=== PATIENT | female | born 1935 | race Caucasian/White ===

== ENCOUNTER → 2019-12-14 15:36 | Outpatient (BNVA) | payer MEDICARE, SELFPAY | PROVIDERS: Family Provider Nurse Practitioner Family; PCP Nurse Practitioner Family; Visit Provider Nurse Practitioner Family | DX: I10 Essential (primary) hypertension (principal); Z51.81 Encounter for therapeutic drug level monitoring | CPT/HCPCS: 80053; 85025 ==

== ENCOUNTER → 2020-06-20 13:45 | Outpatient (BNVA) | payer MEDICARE, SELFPAY | PROVIDERS: Family Provider Nurse Practitioner Family; PCP Nurse Practitioner Family; Visit Provider Nurse Practitioner Family | DX: R30.0 Dysuria (principal); R31.9 Hematuria, unspecified | CPT/HCPCS: 80053; 81000; 87077; 87086; 87186 ==

== ENCOUNTER → 2020-06-27 10:13 | Outpatient (BNVA) | payer MEDICARE, SELFPAY | PROVIDERS: Family Provider Nurse Practitioner Family; PCP Nurse Practitioner Family; Visit Provider Nurse Practitioner Family | DX: N39.0 Urinary tract infection, site not specified (principal) | CPT/HCPCS: 80053 ==

== ENCOUNTER → 2020-12-08 11:11 | Outpatient (BNVA) | payer MEDICARE, SELFPAY | PROVIDERS: Family Provider Nurse Practitioner Family; PCP Nurse Practitioner Family; Visit Provider Nurse Practitioner Family | DX: R39.9 Unspecified symptoms and signs involving the genitourinary system (principal); R31.9 Hematuria, unspecified; Z51.81 Encounter for therapeutic drug level monitoring; Z79.01 Long term (current) use of anticoagulants; N39.0 Urinary tract infection, site not specified | CPT/HCPCS: 80053; 81000; 85025; 87077; 87086; 87184 ==

== ENCOUNTER → 2020-12-22 10:02 | Outpatient (BNVA) | payer MEDICARE, SELFPAY | PROVIDERS: Family Provider Nurse Practitioner Family; PCP Nurse Practitioner Family; Visit Provider Nurse Practitioner Family | DX: R31.9 Hematuria, unspecified (principal) | CPT/HCPCS: 87086 ==

== ENCOUNTER → 2021-09-04 08:48 | Outpatient (BNVA) | payer MEDICARE, SELFPAY | PROVIDERS: Family Provider Nurse Practitioner Family; PCP Nurse Practitioner Family; Visit Provider Nurse Practitioner Family | DX: R30.9 Painful micturition, unspecified (principal); N30.00 Acute cystitis without hematuria | CPT/HCPCS: 81000; 87086 ==

== ENCOUNTER → 2022-05-11 09:11 | Outpatient (BNVA) | payer MEDICARE, SELFPAY | PROVIDERS: Family Provider Nurse Practitioner Family; PCP Nurse Practitioner Family; Visit Provider Internal Medicine | DX: I48.91 Unspecified atrial fibrillation (principal); E78.5 Hyperlipidemia, unspecified; I10 Essential (primary) hypertension; Z79.01 Long term (current) use of anticoagulants | CPT/HCPCS: 99213; 99214 ==

== ENCOUNTER → 2022-07-10 15:53 | Outpatient (BNVA) | payer MEDICARE, SELFPAY | PROVIDERS: Family Provider Nurse Practitioner Family; PCP Nurse Practitioner Family; Visit Provider Nurse Practitioner Family | DX: Z79.01 Long term (current) use of anticoagulants (principal); I10 Essential (primary) hypertension | CPT/HCPCS: 80053; 85025 ==

== ENCOUNTER → 2022-11-07 15:26 | Outpatient (BNVA) | payer MEDICARE, SELFPAY | PROVIDERS: Family Provider Nurse Practitioner Family; PCP Nurse Practitioner Family; Visit Provider Nurse Practitioner Family | DX: R39.9 Unspecified symptoms and signs involving the genitourinary system (principal) | CPT/HCPCS: 81000; 87077; 87086; 87184 ==

== ENCOUNTER → 2023-02-08 09:47 | Outpatient (BNVA) | payer MEDICARE, SELFPAY | PROVIDERS: Family Provider Nurse Practitioner Family; PCP Nurse Practitioner Family; Visit Provider Internal Medicine | DX: I48.91 Unspecified atrial fibrillation (principal); E78.5 Hyperlipidemia, unspecified; I10 Essential (primary) hypertension; Z79.01 Long term (current) use of anticoagulants | CPT/HCPCS: 99214 ==

== ENCOUNTER → 2023-04-09 14:52 | Outpatient (BNVA) | payer MEDICARE, SELFPAY | PROVIDERS: Family Provider Nurse Practitioner Family; PCP Nurse Practitioner Family; Visit Provider Nurse Practitioner Family | DX: N39.0 Urinary tract infection, site not specified (principal) | CPT/HCPCS: 81000; 87077; 87086; 87184 ==

== ENCOUNTER → 2023-04-18 08:59 | Outpatient (BNVA) | payer MEDICARE, SELFPAY | PROVIDERS: Family Provider Nurse Practitioner Family; PCP Nurse Practitioner Family; Visit Provider Nurse Practitioner Family | DX: N39.0 Urinary tract infection, site not specified (principal) | CPT/HCPCS: 87077; 87086; 87184 ==

== ENCOUNTER → 2023-05-01 08:32 | Outpatient (BNVA) | payer MEDICARE, SELFPAY | PROVIDERS: Family Provider Nurse Practitioner Family; PCP Nurse Practitioner Family; Visit Provider Nurse Practitioner Family | DX: N39.0 Urinary tract infection, site not specified (principal) | CPT/HCPCS: 81000; 87086 ==

== ENCOUNTER → 2023-11-28 11:14 | Outpatient (BNVA) | payer MEDICARE, SELFPAY | PROVIDERS: Family Provider Nurse Practitioner Family; PCP Nurse Practitioner Family; Visit Provider Internal Medicine | DX: I48.91 Unspecified atrial fibrillation (principal); Z79.01 Long term (current) use of anticoagulants; E78.5 Hyperlipidemia, unspecified; I10 Essential (primary) hypertension; R06.02 Shortness of breath | CPT/HCPCS: 80048; 83880; 99214 ==

== ENCOUNTER 2023-12-06 13:45 | Outpatient (CLI) | payer MEDICARE, SELFPAY ==
--- NOTE | 2023-12-06 14:00 | USCV_ITS ---
Anna Chávez Age: 88 Gender: F : 1935 Exam Date: 12/06/2023 14:04 Ordering Phys: Antonio Calix M.D ([email or web address]) Technologist: HILDA Exam Location: [facility] [place] Indication: CHEST PAIN/SHORTNESS OF BREATH BP: 118 / 66 HR: 72 Rhythm: Sinus Technical Quality: Adequate MEASUREMENTS (Male / Female) Normal Values 2D ECHO LV Diastolic Diameter PLAX 3.8 cm 4.2 - 5.9 / 3.9 - 5.3 cm IVS Diastolic Thickness 1.0 cm 0.6 - 1.0 / 0.6 - 0.9 cm IVS Systolic Thickness 1.9 cm LVPW Diastolic Thickness 1.7 cm 0.6 - 1.0 / 0.6 - 0.9 cm LVPW Systolic Thickness 1.8 cm LVOT Diameter 2.0 cm LV Ejection Fraction 2D Teich 82.6 % LV Ejection Fraction MOD 2C 61.0 % LV Ejection Fraction 2C AL 62.5 % LA Diameter 4.1 cm RA Systolic Volume 4C AL 20.2 ml RA Systolic Volume 4C MOD 19.3 ml Aorta at Sinotubular Diameter 2.7 cm IVC Diameter 1.6 cm M-MODE LA Ao Ratio MM 1.1 AV Cusp Separation MM 1.4 cm DOPPLER AV Peak Velocity 192.3 cm/s LVOT Peak Velocity 81.0 cm/s AV Area Cont Eq vti 2.2 cm squared AV Area Cont Eq pk 1.4 cm squared MV Peak Velocity 207.7 cm/s MV Area PHT 3.5 cm squared Mitral E to A Ratio 0.0 TR Peak Velocity 198.0 cm/s TR Peak Gradient 15.7 mmHg TR Mean Velocity 169.0 cm/s TR Mean Gradient 11.8 mmHg TR Velocity Time Integral 56.7 cm TV Peak E Velocity 59.0 cm/s Right Atrial Pressure 3.0 mmHg Pulmonary Artery Systolic Pressu 18.7 mmHg PV Peak Velocity 115.0 cm/s RV Ejection Time 0.3 s FINDINGS Left Ventricle Left ventricle is normal in size. LV systolic function is normal with EF of 55-60%. No regional wall motion abnormalities are seen. Right Ventricle Normal in size and function Right Atrium Normal in size Left Atrium Normal in size Mitral Valve Moderate mitral annular calcification. Mild mitral regurgitation. Aortic Valve Structurally normal aortic valve. Mild to moderate aortic regurgitation. Tricuspid Valve Mild tricuspid regurgitation. Pulmonary artery systolic pressure is normal. Pulmonic Valve Mild pulmonic regurgitation. Pericardium Grossly normal Aorta Normal in size IVC Appears to be normal CONCLUSIONS LV systolic function is normal with EF of 55 to 60%. Mild mitral regurgitation Mild to moderate aortic regurgitation Mild tricuspid regurgitation Mild pulmonic regurgitation No comparison studies are available Antonio Calix MD (Electronically Signed) Final Date: 15 December 2023 14:05 S
== END 2023-12-06 13:46 | disposition home or self-care (01) ==
LOC: RAD 13:46
PROVIDERS: Family Provider Nurse Practitioner Family; PCP Nurse Practitioner Family; Visit Provider Internal Medicine
DX: I08.8 Other rheumatic multiple valve diseases (principal)
CPT/HCPCS: 93306

== ENCOUNTER → 2023-12-09 15:18 | Outpatient (BNVA) | payer MEDICARE, SELFPAY | PROVIDERS: Family Provider Nurse Practitioner Family; PCP Nurse Practitioner Family; Visit Provider Nurse Practitioner Family | DX: K92.1 Melena (principal); D64.9 Anemia, unspecified | CPT/HCPCS: 82270; 82607; 83550; 85025 ==

== ENCOUNTER → 2023-12-11 08:40 | Outpatient (BNVA) | payer MEDICARE, SELFPAY | PROVIDERS: Family Provider Nurse Practitioner Family; PCP Nurse Practitioner Family; Visit Provider Nurse Practitioner Family | DX: K92.1 Melena (principal) | CPT/HCPCS: 82272 ==

== ENCOUNTER 2023-12-16 13:06 | Outpatient (CLI) | payer MEDICARE, SELFPAY ==
[2023-12-16 13:52] LABS: Basophils % 0.5 %; Eosinophils # 0.1 10^3/uL (0.0-0.8); Eosinophils % 2.8 %; Hematocrit 29.6 % (36-47); Lymphocytes % 22.5 %; Mean Corpuscular HGB Conc 28.4 g/dL (30-55); Mean Corpuscular Hemoglobin 22.2 pg (27-33); Mean Corpuscular Volume 78.3 fl (85-98); Mean Platelet Volume 10.2 fL (7.4-10.4); Monocytes # 0.4 10^3/uL (0.2-0.9); Neutrophils # 2.86 10^3/uL (1.8-7.7); Neutrophils % 65.7 %; Nucleated Red Blood Cells % 0 %; Platelet Count 303 10^3/cmm (157-399); Red Blood Count 3.78 10^6/uL (3.85-5.65); Red Cell Distribution Width 17.2 % (12.1-15.1); White Blood Count 4.35 10^3/uL (3.29-11.43)
[2023-12-16 14:07] LABS: Anion Gap 14.3 (5-19); Blood Urea Nitrogen 30 mg/dL (8-23); Calcium 8.6 mg/dL (8.5-10.5); Carbon Dioxide 25 mmol/L (22-29); Chloride 102 mmol/L (98-107); Glucose 125 mg/dL (65-115); NT Pro B Type Natriuretic Pept 436 pg/mL (0-450); Osmolality Calculated 292 mOsm/kg (285-295); Potassium 4.3 mmol/L (3.5-5.1); Sodium 137 mmol/L (136-145)
== END 2023-12-16 13:07 | disposition home or self-care (01) ==
LOC: LAB 13:07
PROVIDERS: Family Provider Nurse Practitioner Family; PCP Nurse Practitioner Family; Visit Provider Internal Medicine
DX: I10 Essential (primary) hypertension (principal); I48.91 Unspecified atrial fibrillation; D64.9 Anemia, unspecified
CPT/HCPCS: 36415; 80048; 83880; 85025

== ENCOUNTER → 2024-02-27 11:23 | Outpatient (BNVA) | payer MEDICARE, SELFPAY | PROVIDERS: Family Provider Nurse Practitioner Family; PCP Nurse Practitioner Family; Visit Provider Internal Medicine | DX: I48.91 Unspecified atrial fibrillation (principal); E78.5 Hyperlipidemia, unspecified; I10 Essential (primary) hypertension; Z79.01 Long term (current) use of anticoagulants | CPT/HCPCS: 99214 ==

== ENCOUNTER 2024-03-29 10:09 | Inpatient (IN) | payer MEDICARE, SELFPAY ==
[2024-03-29] VITALS (13 sets, daily range): BP systolic 137–197; BP diastolic 50–91; PULSE 66–79; RESP 16–18; TEMP 36.2–36.6; O2SAT 95–100; BMI 29.1
--- NOTE | 2024-03-29 10:13 | CTR_ITS ---
PROCEDURE INFORMATION: Exam: CT Head Without Contrast Exam date and time: 03/29/2024 10:24 AM Age: 88 years old Clinical indication: Stroke-like symptoms; Altered mental status/memory loss; Additional info: Possible stroke. No focal neurologic signs or symptoms reported. TECHNIQUE: Imaging protocol: Computed tomography of the head without contrast. Radiation optimization: All CT scans at this facility use at least one of these dose optimization techniques: automated exposure control; mA and/or kV adjustment per patient size (includes targeted exams where dose is matched to clinical indication); or iterative reconstruction. Other technique: STROKE PROTOCOL was implemented. COMPARISON: CT head wo con* [id number] 09/04/2018 1:52 AM RADIATION DOSE METRICS: Total DLP (mGy-cm): 1075.18 FINDINGS: Brain: No acute intracranial hemorrhage or abnormal intracranial mass effect is identified. There are no subdural collections. There is mild age-appropriate volume loss. There is a small old left medial occipital infarct, new since 2018 exam but obviously not recent. Small old lacunar infarct noted at the posterolateral margin of the left thalamus. Cerebral ventricles: Size within normal range for age. No midline shift. Paranasal sinuses: Visualized portions of paranasal sinuses are well aerated. Mastoid air cells: Visualized portions of mastoid sinuses are not opacified. Bones: Unremarkable. No acute fracture. Soft tissues: Other than as stated above, no obvious acute abnormality. CT/CT head wo con* [id number] IMPRESSION: No acute intracranial hemorrhage or mass effect. ASSESSMENT: ASPECTS ([place] Stroke Program Early CT Score) is 10.
--- NOTE | 2024-03-29 10:14 | ECG_ITS ---
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 Measurements Intervals [place] Rate: 62 P: 83 GA: 155 QRS: 3 QRSD: 89 T: 36 QT: 410 QTc: 419 Interpretive Statements SINUS RHYTHM WITH OCCASIONAL SUPRAVENTRICULAR PREMATURE COMPLEXES No previous ECG available for comparison Electronically Signed On 03-29-2024 19:19:54 CDT by Antonio Calix M.D. [id number]
--- NOTE | 2024-03-29 10:16 | W.ED.NEUROSD ---
HPI - Neuro Symptoms/Deficit General: Chief Complaint: Neuro Symptoms/Deficit Stated Complaint: HTN Time Seen by Provider: 03/29/24 10:10 History of Present Illness: 88-year-old female who presents emergency room by ambulance with transient left arm weakness. She said she could not control it when she tried to brush her hair. This lasted maybe 30 minutes. EMS reports she was fairly hypertensive well over 200 when they picked her up. On presentation she is 183/78. She currently has no headache. No altered mental status. No facial droop. No slurred speech. On exam here she has no apparent focal motor deficits. The she says her left arm still feels a little bit funny but on exam she really has no drift. No weakness. She denies any chest pain. No nausea or vomiting. No abdominal pain. No dysuria. No fevers Review of Systems Narrative: Constitutional symptoms: Negative except as documented in HPI. Skin symptoms: Negative except as documented in HPI. Eye symptoms: Negative except as documented in HPI. ENMT symptoms: Negative except as documented in HPI. Respiratory symptoms: Negative except as documented in HPI. Cardiovascular symptoms: Negative except as documented in HPI. Gastrointestinal symptoms: Negative except as documented in HPI. Genitourinary symptoms: Negative except as documented in HPI. Musculoskeletal symptoms: Negative except as documented in HPI. Neurologic symptoms: Negative except as documented in HPI. Psychiatric symptoms: Negative except as documented in HPI. Endocrine symptoms: Negative except as documented in HPI. [facility] ED PFSH: Medical History GERD (gastroesophageal reflux disease) Anticoagulation adequate with anticoagulant therapy Atrial fibrillation Dyslipidemia HTN (hypertension) Surgical History S/P bladder repair History of appendectomy Family History Mother CAD (coronary artery disease) Brother CAD (coronary artery disease) Social History Smoking and tobacco/nicotine status: never used tobacco/nicotine Alcohol intake: never Substance/Drug Use: never Adopted: No Caregiver/support person: No Lives independently: Yes service: No Current occupational status: retired Do you think of yourself as: Straight/Heterosexual Current gender identity: Female Physical Exam Narrative: EXAM NARRATIVE: General: Alert, no acute distress. Skin: Warm, dry. Head: Normocephalic, atraumatic. Neck: Supple, trachea midline. Eye: Extraocular movements are intact. Ears, nose, mouth and throat: mucosa moist. Cardiovascular: Regular, Normal peripheral perfusion. Respiratory: Lungs are clear to auscultation, respirations are non-labored, breath sounds are equal, Symmetrical chest wall expansion. Gastrointestinal: Soft, Nontender, Non distended Musculoskeletal: Normal ROM, no deformity. Neurological: Alert and oriented, No focal neurological deficit observed. Psychiatric: Cooperative, appropriate mood & affect. Course Vital Signs: Vital signs: Vital Signs Temperature 97.9 F 03/29/24 10:11 Pulse Rate 71 03/29/24 10:11 Respiratory Rate 18 03/29/24 10:11 Blood Pressure 154/70 03/29/24 13:00 Pulse Oximetry 98 03/29/24 13:00 Oxygen Delivery Me thod Room Air 03/29/24 10:11 MDM - Neuro Symptoms/Deficit Medical Decision Making Medical decision making: Differential diagnosis for patient with focal neurologic deficit(s) includes but not limited to and based on the above HPI, review of systems and physical exam: ischemic stroke, hemorrhagic stroke and embolic stroke secondary to atrial fibrillation), TIA, Us's palsey, metabolic encephalopathy with previous stroke. Orders placed to evaluate differential diagnosis based on the above differential, HPI and physical exam NIH Stroke Scale/Score (NIHSS) from [employer] on 03/29/2024 All calculations should be rechecked by clinician prior to use RESULT SUMMARY: 0 points NIH Stroke Scale INPUTS: 1A: Level of consciousness ?> 0 = Alert; keenly responsive 1B: Ask month and age ?> 0 = Both questions right 1C: 'Blink eyes' & 'squeeze hands' ?> 0 = Performs both tasks 2: Horizontal extraocular movements ?> 0 = Normal 3: Visual guzman ?> 0 = No visual loss 4: Facial palsy ?> 0 = Normal symmetry 5A: Left arm motor drift ?> 0 = No drift for 10 seconds 5B: Right arm motor drift ?> 0 = No drift for 10 seconds 6A: Left leg motor drift ?> 0 = No drift for 5 seconds 6B: Right leg motor drift ?> 0 = No drift for 5 seconds 7: Limb Ataxia ?> 0 = No ataxia 8: Sensation ?> 0 = Normal; no sensory loss 9: Language/aphasia ?> 0 = Normal; no aphasia 10: Dysarthria ?> 0 = Normal 11: Extinction/inattention ?> 0 = No abnormality CT head: No acute intracranial process. no intracranial hemorrhage, no evidence of infarct. no evidence of acute fracture.This was reviewed and interpreted by myself the ER physician. Consultation: I consulted [facility] stroke program and spoke with the physician on-call and he evaluated her by telemedicine. She has an NIH of 1 at best. At high risk for bleeding so at this point they recommend admission and consideration of anticoagulation with Eliquis again. I recommend passive hypertension up to around 200-2 20 systolic. I recommend high-dose statin therapy. If Eliquis not resumed then high-dose aspirin therapy. I recommended MRI and admission. Lab Review: Laboratory results were reviewed and interpreted by myself the emergency room physician. No leukocytosis. Stable anemia. BUN/creatinine are 27 and 1.1 which is near her baseline. Oddly her INR is at 2.36 today and she says she has not been on any anticoagulation for a couple of months now and it was Eliquis before so this is a bit unexpected. Urinalysis is clear. EKG: Time 10:17 AM. Rate 62. PVCs were noted. Normal sinus rhythm, No ST-T changes, normal W[place] & QRS intervals, This was reviewed and interpreted by myself the ER physician at 10:20 AM. Repeat EKG: Time 11:06 AM. Rate 100. Patient either appears to be having more frequent PVCs or has gone into atrial fibrillation. Rate is 100. Normal [place] & QRS intervals, This was reviewed and interpreted by myself the ER physician at 11:10 AM. This EKG does appear changed and she may be going in and out of atrial fibrillation. Repeat EKG: Time 12:05 PM. Rate 65. Normal sinus rhythm, No ST-T changes, no ectopy, normal [place] & QRS intervals, This was reviewed and interpreted by myself the ER physician at 12:08 AM. Patient now appears to be back into a sinus rhythm with no PVCs. Consultation: I spoke with Dr. Dodge about the patient who is admitting the patient to the hospital. I reviewed the patient's medical record. Reexamination: Patient remained stable. No altered mental status. She still says her left arm feels a bit strange. Some mild drift. No increased work of breathing. Assessment and plan: Cerebrovascular accident. Accelerated hypertension. History of recurrent GI bleeding and anemia -325 aspirin given here in the emergency room. Consultation as above and admission. -I discussed the patient with the hospitalist on-call who is admitting the patient. - Discussed findings and plan with patient. Answered any questions. - All laboratory values were reviewed and interpreted personally by myself, the ER physician - All imaging was reviewed and interpreted personally by myself, the ER physician. - Evaluation and treatment of this problem were appropriate in the emergency setting -I spent a total of >35 minutes of critical care time managing the patient, independent of any other practitioner. -The time involved in the performance of separately reportable procedures was not counted towards critical care time. Lab Data 03/29/24 10:44 03/29/24 10:[address] 03/29/24 10:13 IMPRESSION: No acute intracranial hemorrhage or mass effect. ASSESSMENT: ASPECTS ([place] Stroke Program Early CT Score) is 10. Laboratory Results WBC 4.03 10^3/uL (3.29-11.43) 03/29/24 10:44 RBC 3.82 10^6/uL (3.85-5.65) L 03/29/24 10:44 Hgb 10.00 g/dL (11.27-16.99) L 03/29/24 10:44 Hct 33.3 % (36-47) L 03/29/24 10:44 MCV 87.2 fl (85-98) 03/29/24 10:44 MCH 26.2 pg (27-33) L 03/29/24 10:44 MCHC 30.0 g/dL (30-55) 03/29/24 10:44 RDW 17.5 % (12.1-15.1) H 03/29/24 10:44 Plt Count 206 10^3/cmm (157-399) 03/29/24 10:44 MPV 10.0 fL (7.4-10.4) 03/29/24 10:44 Neut % (Auto) 71.1 % 03/29/24 10:44 Lymph % (Auto) 18.4 % 03/29/24 10:44 Bibb % (Auto) 7.4 % 03/29/24 10:44 Eos % (Auto) 2.7 % 03/29/24 10:44 Baso % (Auto) 0.2 % 03/29/24 10:44 Neut # (Auto) 2.86 10^3/uL (1.8-7.7) 03/29/24 10:44 Lymph # (Auto) 0.7 10^3/uL (0.8-4.8) L 03/29/24 10:44 Bibb # (Auto) 0.3 10^3/uL (0.2-0.9) 03/29/24 10:44 Eos # (Auto) 0.1 10^3/uL (0.0-0.8) 03/29/24 10:44 Baso # (Auto) 0.0 10^3/uL (0.0-0.1) 03/29/24 10:44 Nucleated RBC % (auto) 0 % 03/29/24 10:44 Nucleated RBCs # 0.0 /100WBC 03/29/24 10:44 PT 27.00 SECONDS (12.1-14.9) H 03/29/24 10:44 INR 2.39 (0.8-1.2) H 03/29/24 10:44 APTT 33.6 SECONDS (23.9-36.7) 03/29/24 10:44 Sodium 138 mmol/L (136-145) 03/29/24 10:44 Potassium 4.2 mmol/L (3.5-5.1) 03/29/24 10:44 Chloride 104 mmol/L (98-107) 03/29/24 10:44 Carbon Dioxide 24 mmol/L (22-29) 03/29/24 10:44 Anion Gap 14.2 (5-19) 03/29/24 10:44 BUN 27 mg/dL (8-23) H 03/29/24 10:44 Creatinine 1.1 mg/dL (0.5-0.9) H 03/29/24 10:44 GFR Calculation Not Reportable 03/29/24 10:44 Glucose 94 mg/dL (65-115) 03/29/24 10:44 Calculated Osmolality 291 mOsm/kg (285-295) 03/29/24 10:44 Calcium 8.2 mg/dL (8.5-10.5) L 03/29/24 10:44 Total Bilirubin 0.2 mg/dL (0.15-1.2) 03/29/24 10:44 AST 24 U/L (0-32) 03/29/24 10:44 ALT 9 U/L (0-33) 03/29/24 10:44 Alkaline Phosphatase 122 U/L (35-105) H 03/29/24 10:44 Troponin T Baseline 25 ng/L (0-10) H 03/29/24 10:44 Delta Troponin T 0.18 ABS# (0-10) 03/29/24 12:49 C-Reactive Protein 3.0 mg/L (0.0-4.9) 03/29/24 10:44 Total Protein 6.9 g/dL (6.6-8.7) 03/29/24 10:44 Albumin 3.5 g/dL (3.5-5.2) 03/29/24 10:44 Globulin 3.4 g/dL (1.3-4.6) 03/29/24 10:44 Urine Color Yellow (Yellow) 03/29/24 10:55 Urine Appearance Clear (CLEAR) 03/29/24 10:55 Urine pH 5 (5-7) 03/29/24 10:55 Ur Specific [place] 1.015 (1.005-1.030) 03/29/24 10:55 Urine Protein Neg (Negative) 03/29/24 10:55 Urine Glucose (UA) Norm (Normal) 03/29/24 10:55 Urine Ketones Negative (Negative) 03/29/24 10:55 Urine Blood Neg (Negative) 03/29/24 10:55 Urine Nitrate Negative (Negative) 03/29/24 10:55 Urine Bilirubin Neg (Negative) 03/29/24 10:55 Urine Urobilinogen Norm mg/dL (Negative) 03/29/24 10:55 Ur Leukocyte Esterase Negative (Negative) 03/29/24 10:55 Urine RBC None /hpf (0-2) 03/29/24 10:55 Urine WBC 0-4 /hpf (0-5) H 03/29/24 10:55 Ur Squamous Epith Cells 0-4 /hpf (0-5) H 03/29/24 10:55 Amorphous Sediment Not Reportable 03/29/24 10:55 Urine Bacteria Trace /hpf (NONE) 03/29/24 10:55 All radiology interpretation(s) finalized by discharge Discharge Plan Discharge Patient Disposition: Admitted As Inpatient Clinical Impression: Cerebrovascular accident, Atrial fibrillation, Accelerated hypertension Condition: Stable Coding Level of Care Code ED Harvest Worker for Sherin Benjamin
[2024-03-29] MEDS: labetalol 5 mg/mL SDV 20mL 10 MG IVP (10:58)
[2024-03-29] MEDS: aspirin 81 mg Chew Tablet 324 MG PO (10:58)
[2024-03-29 10:59] LABS: Basophils % 0.2 %; Eosinophils # 0.1 10^3/uL (0.0-0.8); Eosinophils % 2.7 %; Hematocrit 33.3 % (36-47); Lymphocytes # 0.7 10^3/uL (0.8-4.8); Lymphocytes % 18.4 %; Mean Corpuscular Hemoglobin 26.2 pg (27-33); Mean Corpuscular Volume 87.2 fl (85-98); Monocytes # 0.3 10^3/uL (0.2-0.9); Monocytes % 7.4 %; Neutrophils # 2.86 10^3/uL (1.8-7.7); Neutrophils % 71.1 %; Nucleated Red Blood Cells % 0 %; Platelet Count 206 10^3/cmm (157-399); Red Blood Count 3.82 10^6/uL (3.85-5.65); Red Cell Distribution Width 17.5 % (12.1-15.1); White Blood Count 4.03 10^3/uL (3.29-11.43)
--- NOTE | 2024-03-29 11:06 | ECG_ITS ---
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 Measurements Intervals [place] Rate: 100 P: 0 CO: 0 QRS: 52 QRSD: 77 T: 30 QT: 316 QTc: 408 Interpretive Statements ATRIAL FIBRILLATION WITH RAPID VENTRICULAR RESPONSE LOW QRS VOLTAGE IN PRECORDIAL LEADS [QRS DEFLECTION < 1.0 mV IN CHEST LEADS] Compared to ECG 03/29/2024 10:17:28 Low QRS voltage now present Sinus rhythm no longer present Electronically Signed On 03-29-2024 19:27:33 CDT by Antonio Calix M.D. [id number]
[2024-03-29 11:09] LABS: Add Urine Culture? No; Bacteria Urine TRACE /hpf; Bilirubin Urine Neg (Negative); Blood Urine Neg (Negative); Glucose Urine UA Norm (Normal); Ketones Urine Negative (Negative); Leukocyte Esterase Urine Negative (Negative); Nitrate Urine Negative (Negative); Protein Urine Neg (Negative); Specific Gravity, Urine 1.015 (1.005-1.030); Squamous Epithelial Cell Urine 0-4 /hpf (0-5); Urine Appearance Clear (CLEAR); Urine Color Yellow (Yellow); Urobilinogen Urine Norm (Negative); WBC Urine 0-4 /hpf (0-5); pH Urine 5 (5-7)
[2024-03-29 11:17] LABS: Alanine Aminotransferase 9 U/L (0-33); Albumin Level 3.5 g/dL (3.5-5.2); Alkaline Phosphatase 122 U/L (35-105); Anion Gap 14.2 (5-19); Aspartate Amino Transferase 24 U/L (0-32); Blood Urea Nitrogen 27 mg/dL (8-23); Calcium 8.2 mg/dL (8.5-10.5); Carbon Dioxide 24 mmol/L (22-29); Chloride 104 mmol/L (98-107); Globulin 3.4 g/dL (1.3-4.6); Glucose 94 mg/dL (65-115); Osmolality Calculated 291 mOsm/kg (285-295); Potassium 4.2 mmol/L (3.5-5.1); Sodium 138 mmol/L (136-145); Total Bilirubin 0.2 mg/dL (0.15-1.2); Total Protein 6.9 g/dL (6.6-8.7)
[2024-03-29 11:19] LABS: Troponin(5th) Baseline 25 ng/L (0-10)
[2024-03-29 11:28] LABS: INR 2.39 (0.8-1.2); Partial Thromboplastin Time 33.6 SECONDS (23.9-36.7)
[2024-03-29 13:20] LABS: Troponin 5 2HR 25.18 ng/L (0-10); Troponin 5 2HR Delta 0.18 ABS# (0-10)
--- NOTE | 2024-03-29 13:20 | USR_ITS ---
PROCEDURE INFORMATION: Exam: US Duplex Bilateral Extracranial Arteries; Complete; Carotid Arteries Exam date and time: 03/29/2024 4:45 PM Age: 88 years old Clinical indication: Other: CVA TECHNIQUE: Imaging protocol: Real-time duplex ultrasound scan of the bilateral extracranial arteries combining chawla scale, color Doppler and spectral waveform analysis with image documentation. Complete exam. Exam focused on the carotid arteries. COMPARISON: CT angio headneck* [id number] 03/29/2024 1:56 PM FINDINGS: Right common carotid artery: Atheroma of the proximal right common carotid artery with moderate stenosis. Right internal carotid artery: Atheromas at its origin with mild stenosis. Right ICA/CCA ratio: Within normal limits. Right external carotid artery: Atheroma at its origin with moderate stenosis. Right vertebral artery: Unremarkable. Antegrade flow. Left common carotid artery: Atheroma at its distal aspect with mild stenosis. Left internal carotid artery: Atheroma at its origin with mild stenosis. Left ICA/CCA ratio: Within normal limits. Left external carotid artery: Atheroma with mild stenosis. Left vertebral artery: Unremarkable. Antegrade flow. US/CV carotid duplex BI* [id number] IMPRESSION: 1. Mild stenosis of bilateral internal carotid arteries. 2. Moderate stenosis of the right proximal common carotid artery. REFERENCES: SRU CRITERIA. The degree of internal carotid artery stenosis is based on criteria defined by the Society of Radiologists in Ultrasound (SRU). Normal is no stenosis. Mild is less than 50% stenosis. Moderate is 50-69% stenosis. Severe is greater than 69% stenosis to near occlusion. Near occlusion is a markedly narrowed lumen. Total occlusion is no detectable patent lumen.
--- NOTE | 2024-03-29 13:20 | MRR_ITS ---
PROCEDURE INFORMATION: Exam: MR Head Without Contrast Exam date and time: 03/29/2024 2:10 PM Age: 88 years old Clinical indication: Altered mental status/memory loss; Age related cognitive decline; Additional info: CVA TECHNIQUE: Imaging protocol: Magnetic resonance imaging of the head without contrast. COMPARISON: CT head wo con* [id number] 03/29/2024 10:24 AM FINDINGS: Brain: Bilateral periventricular white matter and centrum semiovale foci of high FLAIR signal consistent with chronic ischemic small vessel disease. Encephalomalacia of the left medial occipital lobe, from prior infarct. Tiny acute cortical lacunar infarct involving the right precentral gyrus. No intracranial mass. No acute bleed. Cerebral ventricles: Normal. No ventriculomegaly. Bones: Unremarkable. Paranasal sinuses: Normal as visualized. No acute sinusitis. Mastoid air cells: Partial opacification of the right mastoid air cells. Orbital cavities: Post bilateral cataract surgery. Soft tissues: Unremarkable. MR/MR head wo con* [id number] IMPRESSION: Acute cortical lacunar infarct of the right precentral gyrus. No intracranial hemorrhage or intracranial mass.
--- NOTE | 2024-03-29 13:20 | USCV_ITS ---
Anna Chávez Age: 88 Gender: F : 1935 Exam Date: 03/29/2024 17:26 Ordering Phys: Doroteo Dodge MD Technologist: Francois Kenny [place] [facility] [place]: cva BP: 130 / 78 HR: 67 Rhythm: Sinus Technical Quality: Adequate MEASUREMENTS (Male / Female) Normal Values 2D ECHO LV Diastolic Diameter PLAX 4.7 cm 4.2 - 5.9 / 3.9 - 5.3 cm IVS Diastolic Thickness 1.0 cm 0.6 - 1.0 / 0.6 - 0.9 cm IVS Systolic Thickness 1.7 cm LVPW Diastolic Thickness 1.4 cm 0.6 - 1.0 / 0.6 - 0.9 cm LVPW Systolic Thickness 2.1 cm LVOT Diameter 2.0 cm LV Ejection Fraction 2D Teich 75.8 % LV Ejection Fraction MOD 2C 74.8 % LV Ejection Fraction 2C AL 75.2 % LA Diameter 4.3 cm RA Systolic Volume 4C AL 51.4 ml RA Systolic Volume 4C MOD 52.0 ml Aorta at Sinotubular Diameter 2.3 cm IVC Diameter 1.4 cm M-MODE LA Ao Ratio MM 1.4 AV Cusp Separation MM 1.4 cm DOPPLER AV Peak Velocity 231.7 cm/s LVOT Peak Velocity 84.0 cm/s AV Area Cont Eq vti 2.8 cm squared AV Area Cont Eq pk 1.2 cm squared MV Peak Velocity 135.0 cm/s MV Area PHT 2.8 cm squared Mitral E to A Ratio 1.5 TV Peak Velocity 355.5 cm/s TR Peak Velocity 361.0 cm/s TR Peak Gradient 52.1 mmHg TR Mean Velocity 289.0 cm/s TR Mean Gradient 36.3 mmHg TR Velocity Time Integral 103.2 cm PV Peak Velocity 102.3 cm/s RV Ejection Time 0.3 s FINDINGS Left Ventricle Left ventricle is normal in size. LV systolic function is normal with EF of 60 to 65%. No regional wall motion abnormalities are seen Right Ventricle Normal in size and function Right Atrium Normal in size Left Atrium Dilated Mitral Valve Moderate mitral annular calcification seen. Mild mitral regurgitation. Aortic Valve Aortic valve is thickened. No significant stenosis. Mild to moderate aortic regurgitation. Tricuspid Valve Mild tricuspid regurgitation. RVSP is 50 to 55 mmHg. This is consistent with moderate pulmonary hypertension Pulmonic Valve Mild pulmonic regurgitation. Pericardium Normal Aorta Normal in size IVC Appears to be normal CONCLUSIONS LV systolic function is normal with EF of 60-65% Left atrial dilation Mild mitral regurgitation Mild to moderate aortic regurgitation Mild tricuspid regurgitation. Moderate pulmonary hypertension Mild pulmonic regurgitation Compared to prior echocardiogram from 11/2023, no significant changes are seen. Antonio Calix MD (Electronically Signed) Final Date: 30 March 2024 12:00 S
--- NOTE | 2024-03-29 13:20 | ECG_ITS ---
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 Measurements Intervals [place] Rate: 67 P: 87 MS: 163 QRS: -8 QRSD: 86 T: 30 QT: 392 QTc: 416 Interpretive Statements SINUS RHYTHM WITH SINUS ARRHYTHMIA Compared to ECG 03/29/2024 11:06:23 Atrial fibrillation no longer present Electronically Signed On 03-29-2024 19:18:58 CDT by Antonio Calix M.D. [id number]
--- NOTE | 2024-03-29 13:25 | P.HP_ITS ---
Providers/Chief Complaint 2 Primary Care Provider: ASHLEY Negrete Chief Complaint: HTN History of Present Illness Anna Chávez is a 88 year old female with a past medical history of atrial fibrillation, not on anticoagulation due to recent history of GI bleed requiring blood transfusion EGD found to have gastric ulcers in [facility] within the last few months, history of acute on chronic anemia, who presents to [facility] due to left hand clumsiness. Currently patient is alert oriented x 3, following all commands no facial droop no slurring of words, word finding difficulty, no visual deficits no lower extremity weakness, she has some clumsiness of her left hand, although very mild compared to when she came in she tells me, her NIH stroke scale is 1, on my assessment currently, patient tells me that roughly 830 this morning, she woke up, she noticed that she had clumsiness of her left hand, cannot brush her hair, she was able to walk, no unsteadiness on her feet no lightheadedness, no dizziness, no trouble communicating thoughts no facial droop no slurring her words, no other focal weakness, so she tells me that she sat back in her chair, until her daughter called EMS, she came in as a stroke alert, [place] neurology was consulted, they assessed patient, in addition to ER provider, CT head was within normal limits, a stroke scale was 0, patient was not deemed a tPA candidate due to her recent history of GI bleed and low NIH stroke scale, she tells me that her left hand clumsiness has significantly improved, only minimal currently, [id number] is normal, [id number] on the left side is abnormal, she does report that her GI physician in [place] has been monitoring her, per GI bleed, she had an EGD, required cauterization of the stomach ulcer she tells me her hide last hemoglobin was 10, currently it is 10, she is supposed to have a screening EGD in April, does report generalized weakness, no hematemesis, denies any NSAID use, but has been using aspirin for the last week, 81 mg, she is off all blood thinners, in terms of the decision when to and if to resume anticoagulant therapy, she tells me that her GI physician at [place] advised her to have a discussion with her fundraising consultant, she is seeing the fundraising consultant, no decision has been made when and if to resume anticoagulant therapy. With the patient's daughters at bedside I had a detailed discussion with the patient about her goals of care, she is DNR/DNI, in terms of when and if to resume anticoagulant therapy. The decision when to resume anticoagulant therapy is controversial, depends on her symptomatology the size of the stroke, it could be anywhere from 48 hours to 2 weeks, but we could certainly talk to neurology again and see what their opinion is. In terms of anticoagulant and antiplatelet therapy, given that her hemoglobin stable, I gave them 2 reasonable options. We can start her on a heparin drip here after ensuring the CTA head and neck, and MRI do not show any significant bleeding, and we have waited the appropriate time after her acute CVA episode to start anticoagulant therapy although this is very controversial, we can watch her hemoglobin and, watch her here in the hospital, and if she does have any bleeding complications, we can certainly go ahead and proceed to reverse anticoagulant, watch her hemoglobin and transfuse as needed and certainly consider doing an EGD. The other option is, as patient told me the neurologist said, started on aspirin 325 mg, watch her hemoglobin, and have her follow-up with her GI physician in [facility]. Family is asking if we can do the EGD while she is here, electively. Certainly that is a possibility however as she is still in the acute phase of her stroke, complications associate with putting her under any form of anesthesia, even minimal sedation, carries significant risks, morbidity and mortality associated. After discussing the risks and benefits of all options, she voiced understanding, all questions answered, shared decision, patient would prefer aspirin 325 mg. Review of Systems 2 Const: Denies: fever(s) Card: Denies: chest pain Resp: Denies: dyspnea Medications/Allergies Home Medications Medication Instructions Recorded Confirmed Last Taken Type meclizine 25 mg tablet mg PO 12/09/23 02/27/24 Unknown History metoprolol succinate 25 mg See Rx Instructions .Route 01/17/24 02/27/24 Unknown Rx tablet,extended release 24 hr .COMPLEX #180 tabs furosemide 20 mg tablet (Lasix) 20 mg PO BID PRN 02/27/24 02/27/24 Unknown History omeprazole 20 mg capsule,delayed 20 mg PO BID 02/27/24 02/27/24 Unknown History release potassium chloride 20 mEq 20 meq PO DAILY PRN 02/27/24 02/27/24 Unknown History tablet,extended release Allergies Allergy/AdvReac Type Severity Reaction Status Date / Time No Known Allergies Allergy Verified 02/27/24 11:57 PFSH Acute 2 PFSH: Medical History GERD (gastroesophageal reflux disease) Anticoagulation adequate with anticoagulant therapy Atrial fibrillation Dyslipidemia HTN (hypertension) Surgical History S/P bladder repair History of appendectomy Family History Mother CAD (coronary artery disease) Brother CAD (coronary artery disease) Social History Smoking and tobacco/nicotine status: never used tobacco/nicotine Alcohol intake: never Substance/Drug Use: never Adopted: No Caregiver/support person: No Lives independently: Yes service: No Current occupational status: retired Do you think of yourself as: Straight/Heterosexual Current gender identity: Female Vitals/I&O/Wt Last Vital Signs Temp 97.9 F 03/29/24 10:11 Pulse 71 03/29/24 10:11 Resp 18 03/29/24 10:11 BP 154/70 03/29/24 13:00 Pulse Ox 98 03/29/24 13:00 O2 Del Method Room Air 03/29/24 10:11 Weight last 48 hrs Weight 79.379 kg Physical Exam 2 Const: COMMON NORMALS: no acute distress and patient oriented x3 HENMT: COMMON NORMALS: normocephalic HEAD & SCALP: normocephalic Eye: COMMON NORMALS: Equal, round and reactive pupils present and EOMs intact bilaterally Neck/C-Spine: COMMON NORMALS: no JVD Lymph: LYMPHATIC: no lymphadenopathy noted Resp: COMMON NORMALS: normal respiratory effort, No retractions, No use of accessory muscles and clear to auscultation bilaterally AUSCULTATION: clear to auscultation bilaterally Cardio: COMMON NORMALS: regular rate, regular rhythm, S1 normal heart sound present and S2 normal heart sound present RATE: regular rate RHYTHM: r egular rhythm HEART SOUNDS: S1 normal heart sound present and S2 normal heart sound present GI: COMMON NORMALS: Normal to inspection, nondistended, normoactive bowel sounds present, Soft to palpation and non-tender Extremity: COMMON NORMALS: no calf tenderness and no pedal edema Neuro: COMMON NORMALS: patient oriented x3, CN's II-XII intact bilaterally and moves all extremities OTHER: On examination, no paresthesias of bilateral upper extremities, has mild weakness of left hand, with trouble coordinating although mild, [id number] abnormal on the left, clumsiness persists, no other focal weakness, no other focal paresthesias, no facial droop no slurring words no focal weakness, NIH stroke scale is 1 Psych: COMMON NORMALS: mental status grossly normal Data 03/29/24 10:44 03/29/24 10:44 A&P Assessment and plan (1) Acute CVA (cerebrovascular accident): (2) Atrial fibrillation: (3) HTN (hypertension): (4) Dyslipidemia: (5) Melanotic stools: (6) Anemia: Qualifiers: Anemia type: unspecified type Qualified Code(s): D64.9 - Anemia, unspecified Plan Acute CVA ? Left hand clumsy hand -Deemed not a tPA candidate due to recent history of GI bleed, low NIH stroke scale, minor deficit, hemoglobin 10, elevated INR 2.39 -Ct head no acute bleed -Plan -CT head and neck ? MRI brain ? Allow for permissive hypertension, treat if systolic or than 220, diastolic greater than 110 # Neuro neurochecks # Aspiration precautions ? NIH stroke scale ? Bedside speech therapy eval if passed can advance diet as tolerated ? Speech therapy # PT OT ? Telemetry monitoring given history of atrial fibrillation ? For now we will hold off on anticoagulant therapy as per discussion with the patient, risk and benefits as above, aspirin 325 ? atorvastatin 40 mg daily ? IV fluids, creatinine 1.1, -TSH -INR is 2.39, hemoglobin 10, iron studies, repeat hemoglobin every 6 hours, as patient is on full dose aspirin, Protonix, Carafate ? Telemetry monitoring -DNR/DNI ? SCDs for DVT prophylaxis given anemia, elevated INR, history of GI bleed requiring transfusion, EGD, requiring cauterization of stomach ulcers Attestations 2 Medical Necessity Statement*: Patient requires hospitalization, inpatient, greater than 2 midnights, for acute CVA Diagnoses Acute CVA (cerebrovascular accident) I63.9 Atrial fibrillation I48.91 HTN (hypertension) I10 Dyslipidemia E78.5 Melanotic stools K92.1 Anemia, unspecified type D64.9 Anemia type: unspecified type
--- NOTE | 2024-03-29 13:30 | CTR_ITS ---
PROCEDURE INFORMATION: Exam: CTA Head With Contrast, Arteriography Exam date and time: 03/29/2024 1:56 PM Age: 88 years old Clinical indication: Cognitive deficit; Altered mental status; Additional info: CVA TECHNIQUE: Imaging protocol: Computed tomographic angiography of the head with contrast. Exam focused on the arteries. 3D rendering (Not supervised by radiologist): MIP and/or 3D reconstructed images were created by the technologist. Radiation optimization: All CT scans at this facility use at least one of these dose optimization techniques: automated exposure control; mA and/or kV adjustment per patient size (includes targeted exams where dose is matched to clinical indication); or iterative reconstruction. Contrast material: OMNI 350; Contrast volume: 100 ml; Contrast route: INTRAVENOUS (IV); COMPARISON: CT head wo con* [id number] 03/29/2024 10:24 AM RADIATION DOSE METRICS: Total DLP (mGy-cm): 378 FINDINGS: ANTERIOR CIRCULATION: Right internal carotid artery: Intracranial segment is patent with no significant stenosis. No aneurysm. Right middle cerebral artery: No occlusion or significant stenosis. No aneurysm. Right anterior cerebral artery: No occlusion or significant stenosis. No aneurysm. Left internal carotid artery: Intracranial segment is patent with no significant stenosis. No aneurysm. Left middle cerebral artery: No occlusion or significant stenosis. No aneurysm. Left anterior cerebral artery: No occlusion or significant stenosis. No aneurysm. POSTERIOR CIRCULATION: Right vertebral artery: No occlusion or significant stenosis. No aneurysm. Left vertebral artery: No occlusion or significant stenosis. No aneurysm. Basilar artery: No occlusion or significant stenosis. No aneurysm. Right posterior cerebral artery: No occlusion or significant stenosis. No aneurysm. Left posterior cerebral artery: No occlusion or significant stenosis. No aneurysm. Brain: Periventricular white matter hypodensities consistent with chronic ischemic small vessel disease. No large territorial infarct or intracranial bleed. 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 Cerebral ventricles: No ventriculomegaly. Bones/joints: Unremarkable. No acute fracture. Soft tissues: Unremarkable. PROCEDURE INFORMATION: Exam: CTA Neck With Contrast Exam date and time: 03/29/2024 1:56 PM Age: 88 years old Clinical indication: Cognitive deficit; Altered mental status; Additional info: CVA TECHNIQUE: Imaging protocol: Computed tomographic angiography of the neck with contrast. Exam focused on the cervical segments of the vasculature. 3D rendering (Not supervised by radiologist): MIP and/or 3D reconstructed images were created by the technologist. Radiation optimization: All CT scans at this facility use at least one of these dose optimization techniques: automated exposure control; mA and/or kV adjustment per patient size (includes targeted exams where dose is matched to clinical indication); or iterative reconstruction. Contrast material: OMNI 350; Contrast volume: 100 ml; Contrast route: INTRAVENOUS (IV); COMPARISON: CT cervical spin wo con* [id number] 09/04/2018 1:57 AM RADIATION DOSE METRICS: Total DLP (mGy-cm): 378 FINDINGS: Right common carotid artery: Calcified atheroma of the right common carotid artery with mild stenosis. Right internal carotid artery: Calcified atheroma of the cavernous right ICA with mild stenosis. Calcified atheroma of the right proximal ICA with 60% stenosis. Right external carotid artery: No occlusion or stenosis of the origin. Left common carotid artery: Calcified atheromas of the left common carotid artery with mild stenosis. Left internal carotid artery: Calcified atheroma at the origin of the left internal carotid artery with 40% stenosis. Calcified atheroma of the left cavernous ICA with mild stenosis. Left external carotid artery: No occlusion or stenosis of the origin. Right vertebral artery: Calcified atheroma of the origin of the right vertebral artery with mild stenosis. Calcified atheroma of the V4 segment of the right vertebral artery with mild stenosis. Left vertebral artery: Calcified atheroma of the V3 segment of the left vertebral artery with mild stenosis. Calcified atheroma of the V2 segment of the left vertebral artery with mild stenosis. Calcified atheromas at the origin of the left vertebral artery with moderate stenosis. Brachiocephalic artery: Calcified atheromas of the right brachiocephalic artery with mild stenosis. Thyroid: Hypodense right thyroid nodule measuring 5 mm. Soft tissues: Normal. No significant soft tissue swelling. Bones/joints: Mild degenerative disease at the anterior C1-C2 articulation. Demineralization of the visualized bones. No spondylolisthesis. Lungs: Fibrotic changes of bilateral lung apices. CT/CT angio headneck* [id number] IMPRESSION: No large vessel stenosis or occlusion. 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 COMMENTS: Consistent with the [employer]'s Incidental Findings Committee white paper (J Am Jose Cruz Radiol 2015): In patients aged 35 years and older with an incidental thyroid nodule equal to or greater than 1.[address], MRI or extrathyroidal US, further evaluation with dedicated thyroid US is recommended for patients with normal life expectancy and without comorbidities. For smaller nodules without suspicious features, no further evaluation or follow up is recommended. REFERENCES: NASCET CRITERIA. The degree of stenosis in the cervical segment of the internal carotid artery is based on NASCET criteria. Normal is no stenosis. Mild is less than 50% stenosis. Moderate is 50-69% stenosis. Severe is 70% to 99% stenosis. Total occlusion is no detectable patent lumen.
[2024-03-29 13:51] LABS: Ferritin 34 ng/mL (15-150); Iron 31 ug/dL (37-145); NT Pro B Type Natriuretic Pept 861 pg/mL (0-450); Thyroid Stimulating Hormone 2.39 uIU/mL (0.27-4.20)
[2024-03-29] MEDS: iohexol 350 mg/mL 500 mL Btl (per mL) IV (14:04)
[2024-03-29 15:16] LABS: Chol HDL Ratio 3.36 mg/dL (0.0-4.40); Cholesterol 215 mg/dL (0-200); HDL Cholesterol 64 mg/dL (60-100); LDL Cholesterol Calculated 135 mg/dL (50-129); LDL HDL Ratio 2.11 RATIO (0.00-3.22); Triglycerides 78 mg/dL (0-150)
[2024-03-29 15:29] LABS: Estmated Average Glucose 103; Hemoglobin A1C 5.2 % (4.0-6.0)
[2024-03-29] MEDS: sodium chloride 0.9% 1,000 ML 75 ML IV (15:41)
[2024-03-29] MEDS: sucralfate 1 gm/10 mL Oral Liq UDC PO (15:41)
[2024-03-29] MEDS: pantoprazole 40 mg SDV IVP (15:41)
--- NOTE | 2024-03-29 16:14 | ECG_ITS ---
[facility] Test Date: 2024-03-29 Pat Name: Anna Chávez Department: Room: 256 Gender: Female Parts Identifier: : [id number] Requested By: Fiorella Mclaughlin Order Number: [id number] Kurt MD: Antonio Calix M.D. Measurements Intervals [place] Rate: 73 P: 80 ME: 161 QRS: 3 QRSD: 90 T: 32 QT: 383 QTc: 423 Interpretive Statements SINUS RHYTHM Compared to ECG 03/29/2024 13:32:33 Sinus arrhythmia no longer present Electronically Signed On 03-29-2024 19:25:55 CDT by Antonio Calix M.D. [id number]
[2024-03-29 18:14] LABS: Hematocrit 32.8 % (36-47)
[2024-03-29 18:36] LABS: Troponin 5 6HR 39.66 ng/L (0-10)
[2024-03-29 18:53] LABS: Troponin 5 6HR Delta 14.66 ng/L (0-12)
[2024-03-29] MEDS: atorvastatin 40 mg Tablet PO (21:03)
--- NOTE | 2024-03-29 21:34 | ECG_ITS ---
[facility] Test Date: 2024-03-29 Pat Name: Anna Chávez Department: Room: 256 Gender: Female Technical Services Consultant: : [id number] Requested By: Doroteo Dodge Order Number: [id number] Kurt MD: Antonio Calix M.D. Measurements Intervals [place] Rate: 66 P: 78 OH: 165 QRS: 23 QRSD: 80 T: -2 QT: 395 QTc: 414 Interpretive Statements SINUS RHYTHM LOW QRS VOLTAGE IN PRECORDIAL LEADS [QRS DEFLECTION < 1.0 mV IN CHEST LEADS] NONSPECIFIC T-WAVE ABNORMALITY Compared to ECG 03/29/2024 17:08:00 Low QRS voltage now present T-wave abnormality now present Electronically Signed On 03-30-2024 12:06:15 CDT by Antonio Calix M.D. [id number]
[2024-03-30] VITALS (9 sets, daily range): BP systolic 141–164; BP diastolic 52–71; PULSE 63–77; RESP 15–20; TEMP 36.6–36.7; O2SAT 97–99
[2024-03-30] MEDS: sucralfate 1 gm/10 mL Oral Liq UDC PO ×2 (02:31→14:30)
[2024-03-30] MEDS: pantoprazole 40 mg SDV IVP ×2 (02:31→14:30)
[2024-03-30] MEDS: sodium chloride 0.9% 1,000 ML 75 ML IV (03:34)
[2024-03-30 03:57] LABS: Basophils % 0.6 %; Eosinophils # 0.2 10^3/uL (0.0-0.8); Eosinophils % 4.2 %; Hematocrit 29.3 % (36-47); Lymphocytes # 1.2 10^3/uL (0.8-4.8); Lymphocytes % 35.1 %; Mean Corpuscular HGB Conc 30.4 g/dL (30-55); Mean Corpuscular Hemoglobin 26.4 pg (27-33); Mean Corpuscular Volume 86.9 fl (85-98); Mean Platelet Volume 10.2 fL (7.4-10.4); Monocytes # 0.4 10^3/uL (0.2-0.9); Monocytes % 9.9 %; Neutrophils # 1.75 10^3/uL (1.8-7.7); Neutrophils % 49.6 %; Nucleated Red Blood Cells % 0 %; Platelet Count 157 10^3/cmm (157-399); Red Blood Count 3.37 10^6/uL (3.85-5.65); Red Cell Distribution Width 17.2 % (12.1-15.1); White Blood Count 3.53 10^3/uL (3.29-11.43)
[2024-03-30 04:28] LABS: Anion Gap 10.2 (5-19); Blood Urea Nitrogen 30 mg/dL (8-23); Calcium 8.1 mg/dL (8.5-10.5); Carbon Dioxide 25 mmol/L (22-29); Chloride 110 mmol/L (98-107); Glucose 113 mg/dL (65-115); Magnesium 1.9 mg/dL (1.7-2.3); Osmolality Calculated 299 mOsm/kg (285-295); Phosphorus 3.8 mg/dL (2.5-4.5); Potassium 4.2 mmol/L (3.5-5.1); Sodium 141 mmol/L (136-145)
[2024-03-30 04:34] LABS: Creatinine Clr Calc Pharmacy 37.2323
[2024-03-30 09:03] LABS: Hematocrit 30.4 % (36-47)
--- NOTE | 2024-03-30 09:19 | PC.CHAP ---
Pastoral Care Encounter/Spiritual Assessment Type of Contact [] Declined port traffic manager visit [x] Patient/Family/Request visit [] Outpatient visit [] Follow-up visit [] Physician referral [] Code/Alert [] Routine visit [] Staff referral [] Actively dying [] Patient sleeping [x] Family support [] [] Out of room [] Palliative care [] [] Receiving care in room [] Pre-surgical visit [] Trauma [] Long length of stay [] ICU visit [] Other: Relational/Emotional Strength [] Patient feels connected with others/family/visitors/staff [] Distress [] Loneliness/isolation [] Abandonment Spirituality of Patient [x] Person of Aura [x] Attends Orthodoxy of their Aura [x] Believes in Prayer [x] Reads Bible or Baptist materials [] There are Spiritual issues to be addressed Furnace Combination Analyst Interventions [x] Prayer [x] Active listening [] Non-anxious presence [] Spiritual/emotional support [] Crisis/trauma care [] Spiritual counseling [] Bereavement support [] Provided bereavement packet [x] Provided Bible/devotional materials [] Provided toy/stuffed animal, coloring book to patient or family member [] Provided Communion [] Anointing/[place] [] Salvation [x] Completed spiritual assessment [] Other: Impact on Illness or Injury [] Angry [] Fearful [] Anxious [] Often cries [] Exhaustion [] Unable to work [] Unable to attend yazidi [] Unable to walk/stand [] Unable to read [] Unable to drive [] Unable to eat/drink [] Unable to sleep [] Unable to be with family [] Patient intubated [] Other: Summary Time spent with patient 15 min
[2024-03-30] MEDS: aspirin 325 mg EC Tablet PO (09:34)
[2024-03-30 10:09] LABS: INR 1.08 (0.8-1.2)
--- NOTE | 2024-03-30 11:18 | PC.NURSE ---
Up ad yuan. Walking around room. SCDs contraindicated
--- NOTE | 2024-03-30 14:34 | P.PN_ITS ---
Subjective 2 Subjective: - Patient was seen this morning multiple times, she is alert and oriented x 4, following all commands, her left hand weakness, numbness, clumsiness is significant improving, she was up and ambulatory to the bathroom, denies any weakness, no fatigue, malaise ? We did detailed discussion with her about her MRI findings ? Discussed with her her CT findings ? Discussed her elevated troponin she has no chest pain complaints or echocardiogram shows no new changes, EKG no acute ST-T wave changes, plan to continue to monitor she is agreeable Family numbers at bedside My current concern is her hemoglobin dropped being down to 8.9 with me having her on full dose aspirin 325, given her history of gastric ulcers, there could be a risk that potentially there is a gastric ulcer that is bleeding, her ferritin/iron is on the lower end of normal, she denies any bloody or black stools, ? I would prefer to monitor her in the hospital, status post throat continue PT OT, monitor hemoglobin closely as I am concerned that she might be having a slow GI bleed or it could be hemodilution from the fluid that she is receiving however I think that we should watch her here closely in the hospital monitor hemoglobin as I am worried about her developing a GI bleed As she was quite upset, became very tearful as she wanted to go home, however family numbers were able to talk her into it ? Patient was reexamined early in the afternoon she is alert oriented x 4 following all commands she is after using her phone to call family members, her left hand clumsiness is significant improving we discussed her hemoglobin improving to 9.2 she denies any bloody or black stools, no lightheadedness, dizziness, will continue to monitor hemoglobin for the next 24 hours, if her hemoglobin remained stable, then we will go ahead and discharge her tomorrow with aspirin with Protonix and Carafate however if she does develop worsening anemia, then there might be a strong consideration of doing an EGD, however avoiding any form of anesthesia in the acute form of a stroke would potentially be in her best interest, unless absolutely necessary, she understands this, Vitals/I&O/Wt Last Vital Signs Temp 97.8 F 03/30/24 08:00 Pulse 74 03/30/24 08:00 Resp 20 H 03/30/24 08:00 BP 162/55 03/30/24 08:00 Pulse Ox 99 07/08/24 08:00 O2 Del Method Room Air 03/30/24 08:00 03/29/24 03/30/24 03/30/24 22:59 06:59 14:59 Intake Total 480 / 480 891.25 / 1371.25 240 / 240 Balance 480 / 480 891.25 / 1371.25 240 / 240 Weight last 48 hrs Weight 60.509 kg Weight 79.379 kg Weight 79.379 kg Physical Exam 2 Const: COMMON NORMALS: no acute distress and patient oriented x3 Resp: COMMON NORMALS: normal respiratory effort, No retractions, No use of accessory muscles and clear to auscultation bilaterally AUSCULTATION: clear to auscultation bilaterally Cardio: COMMON NORMALS: regular rate, regular rhythm, S1 normal heart sound present and S2 normal heart sound present RATE: regular rate RHYTHM: r egular rhythm HEART SOUNDS: S1 normal heart sound present and S2 normal heart sound present GI: COMMON NORMALS: Normal to inspection, nondistended, normoactive bowel sounds present and non-tender Extremity: COMMON NORMALS: no pedal edema Neuro: COMMON NORMALS: patient oriented x3, CN's II-XII intact bilaterally, moves all extremities and no focal motor deficits OTHER: Left hand clumsy hand, weakness, very mild Psych: COMMON NORMALS: mental status grossly normal Data 03/30/24 08:39 03/30/24 03:09 A&P Assessment and plan (1) Acute CVA (cerebrovascular accident): (2) Atrial fibrillation: (3) HTN (hypertension): (4) Dyslipidemia: (5) Melanotic stools: (6) Anemia: Qualifiers: Anemia type: unspecified type Qualified Code(s): D64.9 - Anemia, unspecified (7) GI bleed: (8) NSTEMI (non-ST elevated myocardial infarction): (9) Iron deficiency: Plan Acute CVA ? Left hand clumsy hand -Deemed not a tPA candidate due to recent history of GI bleed, low NIH stroke scale, minor deficit, hemoglobin 10, elevated INR 2.39 -Ct head no acute bleed -CTA head and neck - CT/CT angio headneck* [id number] IMPRESSION: No large vessel stenosis or occlusion. 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 -MRI of the brain MR/MR head wo con* [id number] IMPRESSION: Acute cortical lacunar infarct of the right precentral gyrus. No intracranial hemorrhage or intracranial mass. -Plan -Continue to monitor closely ? Allow for permissive hypertension, treat if systolic or than 220, diastolic greater than 110 # Neuro neurochecks # Aspiration precautions ? NIH stroke scale ? Bedside speech therapy eval if passed can advance diet as tolerated ? Speech therapy # PT OT ? Telemetry monitoring given history of atrial fibrillation ? For now we will hold off on anticoagulant therapy as per discussion with the patient, risk and benefits as above, aspirin 325 ? atorvastatin 40 mg daily ? IV fluids, creatinine 1.1, -TSH -Concerns for slow GI bleed, hemoglobin 8.9, repeat hemoglobin every 6 hours, as patient is on full dose aspirin, Protonix, Carafate ? NSTEMI, echocardiogram no acute findings, no chest pain complaints, EKG no acute ST-T wave changes, continue aspirin, statin ? Telemetry monitoring -DNR/DNI ? SCDs for DVT prophylaxis given anemia, elevated INR, history of GI bleed requiring transfusion, EGD, requiring cauterization of stomach ulcers, recent anemia - Patient was seen this morning multiple times, she is alert and oriented x 4, following all commands, her left hand weakness, numbness, clumsiness is significant improving, she was up and ambulatory to the bathroom, denies any weakness, no fatigue, malaise ? We did detailed discussion with her about her MRI findings ? Discussed with her her CT findings ? Discussed her elevated troponin she has no chest pain complaints or echocardiogram shows no new changes, EKG no acute ST-T wave changes, plan to continue to monitor she is agreeable Family numbers at bedside My current concern is her hemoglobin dropped being down to 8.9 with me having her on full dose aspirin 325, given her history of gastric ulcers, there could be a risk that potentially there is a gastric ulcer that is bleeding, her ferritin/iron is on the lower end of normal, she denies any bloody or black stools, ? I would prefer to monitor her in the hospital, status post throat continue PT OT, monitor hemoglobin closely as I am concerned that she might be having a slow GI bleed or it could be hemodilution from the fluid that she is receiving however I think that we should watch her here closely in the hospital monitor hemoglobin as I am worried about her developing a GI bleed As she was quite upset, became very tearful as she wanted to go home, however family numbers were able to talk her into it ? Patient was reexamined early in the afternoon she is alert oriented x 4 following all commands she is after using her phone to call family members, her left hand clumsiness is significant improving we discussed her hemoglobin improving to 9.2 she denies any bloody or black stools, no lightheadedness, dizziness, will continue to monitor hemoglobin for the next 24 hours, if her hemoglobin remained stable, then we will go ahead and discharge her tomorrow with aspirin with Protonix and Carafate however if she does develop worsening anemia, then there might be a strong consideration of doing an EGD, however avoiding any form of anesthesia in the acute form of a stroke would potentially be in her best interest, unless absolutely necessary, she understands this, -Spoke to patient family multiple times, spoke to patient's nurse, case workers Attestations 2 Medical Necessity Statement*: Patient requires hospitalization, inpatient, greater than 2 minutes, acute CVA, now with concerns for slow GI bleed, NSTEMI, anemia, iron deficiency anemia, requiring inpatient monitoring Diagnoses Acute CVA (cerebrovascular accident) I63.9 Atrial fibrillation I48.91 HTN (hypertension) I10 Dyslipidemia E78.5 Melanotic stools K92.1 Anemia, unspecified type D64.9 Anemia type: unspecified type GI bleed K92.2 NSTEMI (non-ST elevated myocardial infarction) I21.4 Iron deficiency E61.1
[2024-03-30 14:49] LABS: Hematocrit 30.4 % (36-47)
--- NOTE | 2024-03-30 15:10 | PC.SOCIAL ---
IMM updated IMM initialed and dated, copy given to patient and placed in chart.
[2024-03-30] MEDS: atorvastatin 40 mg Tablet PO (21:43)
[2024-03-30 22:00] LABS: Hematocrit 30.4 % (36-47)
[2024-03-31] MEDS: pantoprazole 40 mg SDV IVP (02:28)
[2024-03-31] MEDS: sucralfate 1 gm/10 mL Oral Liq UDC PO (02:28)
[2024-03-31 04:00] VITALS: BP 161/66; PULSE 72; RESP 16; TEMP 36.7; O2SAT 95
[2024-03-31 04:53] VITALS: BMI 22.4
[2024-03-31 05:42] LABS: Basophils % 0.5 %; Eosinophils # 0.2 10^3/uL (0.0-0.8); Eosinophils % 4.5 %; Hematocrit 30.3 % (36-47); Lymphocytes # 0.8 10^3/uL (0.8-4.8); Lymphocytes % 22.3 %; Mean Corpuscular HGB Conc 30.4 g/dL (30-55); Mean Corpuscular Hemoglobin 26.1 pg (27-33); Mean Corpuscular Volume 85.8 fl (85-98); Mean Platelet Volume 10.3 fL (7.4-10.4); Monocytes # 0.3 10^3/uL (0.2-0.9); Monocytes % 8.5 %; Neutrophils % 63.7 %; Nucleated Red Blood Cells % 0 %; Platelet Count 176 10^3/cmm (157-399); Red Blood Count 3.53 10^6/uL (3.85-5.65); Red Cell Distribution Width 17.2 % (12.1-15.1); White Blood Count 3.77 10^3/uL (3.29-11.43)
[2024-03-31 06:00] VITALS: PULSE 67
[2024-03-31 06:03] LABS: Alanine Aminotransferase 9 U/L (0-33); Albumin Level 3.4 g/dL (3.5-5.2); Alkaline Phosphatase 110 U/L (35-105); Anion Gap 14.1 (5-19); Aspartate Amino Transferase 26 U/L (0-32); Blood Urea Nitrogen 23 mg/dL (8-23); Calcium 8.2 mg/dL (8.5-10.5); Carbon Dioxide 23 mmol/L (22-29); Chloride 111 mmol/L (98-107); Globulin 2.7 g/dL (1.3-4.6); Glucose 97 mg/dL (65-115); Osmolality Calculated 302 mOsm/kg (285-295); Potassium 4.1 mmol/L (3.5-5.1); Sodium 144 mmol/L (136-145); Total Bilirubin 0.3 mg/dL (0.15-1.2); Total Protein 6.1 g/dL (6.6-8.7)
[2024-03-31 06:06] LABS: Creatinine Clr Calc Pharmacy 37.4174
[2024-03-31 06:26] LABS: INR 1.08 (0.8-1.2)
[2024-03-31 07:47] VITALS: BP 174/60; PULSE 85; RESP 16; TEMP 36.4; O2SAT 100
[2024-03-31] MEDS: aspirin 325 mg EC Tablet PO (08:29)
--- NOTE | 2024-03-31 11:00 | PM.DCS ---
Discharge Providers Date of Admission: 03/29/24 13:11 Date of Discharge: March 31, 2024 Attending Provider at Admission: Doroteo Dodge MD Attending Provider at Discharge: Doroteo Dodge MD Primary Care Provider: ASHLEY Negrete Diagnoses at Discharge Discharge Diagnosis (1) Acute CVA (cerebrovascular accident): Status: Acute (2) Atrial fibrillation: Status: Acute (3) HTN (hypertension): Status: Acute (4) Dyslipidemia: Status: Acute (5) Melanotic stools: Status: Acute (6) Anemia: Status: Acute Qualifiers: Anemia type: unspecified type Qualified Code(s): D64.9 - Anemia, unspecified (7) GI bleed: Status: Acute (8) NSTEMI (non-ST elevated myocardial infarction): Status: Acute (9) Iron deficiency: Status: Acute Reason for Visit Reason for Visit: HTN Hospital Course Hospital Course Anna Chávez is a 88 year old female with a past medical history of atrial fibrillation, not on anticoagulation due to recent history of GI bleed requiring blood transfusion EGD found to have gastric ulcers in [facility] within the last few months, history of acute on chronic anemia, who presents to [facility] due to left hand clumsiness. Currently patient is alert oriented x 3, following all commands no facial droop no slurring of words, word finding difficulty, no visual deficits no lower extremity weakness, she has some clumsiness of her left hand, although very mild compared to when she came in she tells me, her NIH stroke scale is 1, on my assessment currently, patient tells me that roughly 830 this morning, she woke up, she noticed that she had clumsiness of her left hand, cannot brush her hair, she was able to walk, no unsteadiness on her feet no lightheadedness, no dizziness, no trouble communicating thoughts no facial droop no slurring her words, no other focal weakness, so she tells me that she sat back in her chair, until her daughter called EMS, she came in as a stroke alert, [facility] was consulted, they assessed patient, in addition to ER provider, CT head was within normal limits, a stroke scale was 0, patient was not deemed a tPA candidate due to her recent history of GI bleed and low NIH stroke scale, she tells me that her left hand clumsiness has significantly improved, only minimal currently, [id number] is normal, [id number] on the left side is abnormal, she does report that her GI physician in [place] has been monitoring her, per GI bleed, she had an EGD, required cauterization of the stomach ulcer she tells me her hide last hemoglobin was 10, currently it is 10, she is supposed to have a screening EGD in April, does report generalized weakness, no hematemesis, denies any NSAID use, but has been using aspirin for the last week, 81 mg, she is off all blood thinners, in terms of the decision when to and if to resume anticoagulant therapy, she tells me that her GI physician at [place] advised her to have a discussion with her clinical marketing manager, she is seeing the clinical marketing manager, no decision has been made when and if to resume anticoagulant therapy. With the patient's daughters at bedside I had a detailed discussion with the patient about her goals of care, she is DNR/DNI, in terms of when and if to resume anticoagulant therapy. The decision when to resume anticoagulant therapy is controversial, depends on her symptomatology the size of the stroke, it could be anywhere from 48 hours to 2 weeks, but we could certainly talk to neurology again and see what their opinion is. In terms of anticoagulant and antiplatelet therapy, given that her hemoglobin stable, I gave them 2 reasonable options. We can start her on a heparin drip here after ensuring the CTA head and neck, and MRI do not show any significant bleeding, and we have waited the appropriate time after her acute CVA episode to start anticoagulant therapy although this is very controversial, we can watch her hemoglobin and, watch her here in the hospital, and if she does have any bleeding complications, we can certainly go ahead and proceed to reverse anticoagulant, watch her hemoglobin and transfuse as needed and certainly consider doing an EGD. The other option is, as patient told me the neurologist said, started on aspirin 325 mg, watch her hemoglobin, and have her follow-up with her GI physician in [facility]. Family is asking if we can do the EGD while she is here, electively. Certainly that is a possibility however as she is still in the acute phase of her stroke, complications associate with putting her under any form of anesthesia, even minimal sedation, carries significant risks, morbidity and mortality associated. After discussing the risks and benefits of all options, she voiced understanding, all questions answered, shared decision, patient would prefer aspirin 325 mg. Patient was admitted to [facility] for Acute CVA for embolic stroke given A-fib with RVR history ? Left hand clumsy hand -Deemed not a tPA candidate due to recent history of GI bleed, low NIH stroke scale, minor deficit, hemoglobin 10, elevated INR 2.39 -Ct head no acute bleed -CTA head and neck - CT/CT angio headneck* [id number] IMPRESSION: No large vessel stenosis or occlusion. 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 -MRI of the brain MR/MR head wo con* [id number] IMPRESSION: Acute cortical lacunar infarct of the right precentral gyrus. No intracranial hemorrhage or intracranial mass. -She was medically managed as inpatient, receiving full dose aspirin 325, statin, IV fluids, permissive hypertension, monitored, her left hand clumsiness weakness has resolved during her hospitalization, no word finding difficulty no visual deficits no other focal neurologic deficits, ambulating without any lightheadedness or dizziness -On discharge I have discharged aspirin 325 mg once daily, we had extensive discussion that aspirin is not as good as Eliquis, to decrease the risk of embolic strokes, however given her current history of GI bleed, there is significant risk of bleeding with Eliquis, after discussing the risk and benefits, she voiced understanding, all questions answered, patient would prefer aspirin 325 mg, ? However in the future if her hemoglobin remained stable, and she does have a repeat EGD, and it is reasonable to resume Eliquis, Eliquis certainly can be resumed in the lieu of aspirin 325 mg in the future During hospitalization there was concerns for slow GI bleed as her hemoglobin dropped to 8.9 with evidence of iron deficiency anemia ? She was monitored as inpatient, hemoglobin was monitored and remained stable between 9 and 10 no bloody or black stools no hemodynamic compromise, no significant bleeding events # She has an outpatient follow-up with her GI doctor April 23 for an EGD in [facility], I think that would be reasonable to keep unless she starts having evidence of bleeding earlier than that , then she might have it done more urgently, perhaps here at [facility] ? Nonetheless I discharged her on Protonix, Carafate ? Repeat hemoglobin as outpatient and she needs close monitoring of her hemoglobin ? If she develops bloody or black stools or drop of her hemoglobin below 8 , she should immediately go to the emergency room for consideration of EGD and blood transfusion, as these are indications of life-threatening bleeding ? I discharged her on IV iron therapy for her iron deficiency anemia and her fatigue and malaise - If you have any recurrent strokelike symptoms please call 911 ? For your stroke I have discharged on aspirin 325 mg daily ? Please take Protonix and Carafate as prescribed ? If you feel lightheaded or dizzy, feel weak, develop bloody or black stools please immediately call 911 ? Please have your primary care provider recheck your hemoglobin on , hemoglobin on discharge 9.2, I would say if her hemoglobin drops below 8, she should come back to the emergency room for consideration of blood transfusion and close monitoring Please follow-up with your data developer for EGD on April 23 ? If you have a significant fall or injury or bloody or black stools please go to emergency room as aspirin is a strong blood thinner ? For your atrial fibrillation please take metoprolol as prescribed, if you develop chest pain or palpitations please go emergency room -For your iron deficiency, you will receive 3 more doses of IV Venofer 200 mg every 3 days, starting next week ? Please do not take oral iron Physical Exam Const: COMMON NORMALS: no acute distress and patient oriented x3 Resp: COMMON NORMALS: normal respiratory effort, No retractions, No use of accessory muscles and clear to auscultation bilaterally AUSCULTATION: clear to auscultation bilaterally Cardio: COMMON NORMALS: regular rate, regular rhythm, S1 normal heart sound present and S2 normal heart sound present RATE: regular rate RHYTHM: regular rhythm HEART SOUNDS: S1 normal heart sound present and S2 normal heart sound present GI: COMMON NORMALS: Normal to inspection, nondistended, normoactive bowel sounds present and non-tender Extremity: COMMON NORMALS: no pedal edema Neuro: COMMON NORMALS: patient oriented x3, CN's II-XII intact bilaterally, moves all extremities and no focal motor deficits Psych: COMMON NORMALS: mental status grossly normal Discharge Data Studies Completed and Pending Completed Studies During Hospitalization Category Date Time Status CT angio head neck [CT angio headneck* [id number]] Cat Scan 03/29/24 13:[address] head wo con* [id number] Stat Cat Scan 03/29/24 10:13 Completed MR head wo con* [id number] Routine MRI 03/29/24 13:20 Completed CV carotid duplex BI* [id number] Stat Ultrasound 03/29/24 13:20 Completed CV. echo complete* [id number] Routine Ultrasound 03/29/24 13:20 Completed Pending at discharge Category Date Time Status Complete Blood Count w/Auto AM LABS Lab 04/01/24 04:00 Ordered Complete Blood Count w/Auto AM LABS Lab 04/02/24 04:00 Ordered Comprehensive Metabolic Panel AM LABS Lab 04/01/24 04:00 Ordered Comprehensive Metabolic Panel AM LABS Lab 04/02/24 04:00 Ordered Occult Blood Stool [Immunochemical Fecal OCB] Routine Lab 03/29/24 14:56 Uncollected Occult Blood Stool [Immunochemical Fecal OCB] Stat Lab 03/30/24 14:36 Uncollected Prothrombin Time INR AM LABS Lab 04/01/24 04:00 Ordered Prothrombin Time INR AM LABS Lab 04/02/24 04:00 Ordered Radiology Impressions Head CT 03/29/24 10:13 IMPRESSION: No acute intracranial hemorrhage or mass effect. ASSESSMENT: ASPECTS (Annamarie Stroke Program Early CT Score) is 10. Carotid Doppler Study 03/29/24 13:20 IMPRESSION: 1. Mild stenosis of bilateral internal carotid arteries. 2. Moderate stenosis of the right proximal common carotid artery. REFERENCES: SRU CRITERIA. The degree of internal carotid artery stenosis is based on criteria defined by the Society of Radiologists in Ultrasound (SRU). Normal is no stenosis. Mild is less than 50% stenosis. Moderate is 50-69% stenosis. Severe is greater than 69% stenosis to near occlusion. Near occlusion is a markedly narrowed lumen. Total occlusion is no detectable patent lumen. Head MRI 03/29/24 13:20 IMPRESSION: Acute cortical lacunar infarct of the right precentral gyrus. No intracranial hemorrhage or intracranial mass. ADDENDUM: 03/29/24 0232 THIS REPORT CONTAINS FINDINGS THAT MAY BE CRITICAL TO PATIENT CARE. The findings were verbally communicated via telephone conference with DOROTEO DODGE at 3:05 PM CDT on 03/29/2024. The findings were acknowledged and understood. Head/Neck CTA 03/29/24 13:30 IMPRESSION: No large vessel stenosis or occlusion. 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 COMMENTS: Consistent with the [employer]'s Incidental Findings Committee white paper (J Am Jose Cruz Radiol 2015): In patients aged 35 years and older with an incidental thyroid nodule equal to or greater than 1.[address], MRI or extrathyroidal US, further evaluation with dedicated thyroid US is recommended for patients with normal life expectancy and without comorbidities. For smaller nodules without suspicious features, no further evaluation or follow up is recommended. REFERENCES: NASCET CRITERIA. The degree of stenosis in the cervical segment of the internal carotid artery is based on NASCET criteria. Normal is no stenosis. Mild is less than 50% stenosis. Moderate is 50-69% stenosis. Severe is 70% to 99% stenosis. Total occlusion is no detectable patent lumen. Laboratory Results WBC 3.77 10^3/uL (3.29-11.43) 03/31/24 04:58 RBC 3.53 10^6/uL (3.85-5.65) L 03/31/24 04:58 Hgb 9.20 g/dL (11.27-16.99) L 03/31/24 04:58 Hct 30.3 % (36-47) L 03/31/24 04:58 MCV 85.8 fl (85-98) 03/31/24 04:58 MCH 26.1 pg (27-33) L 03/31/24 04:58 MCHC 30.4 g/dL (30-55) 03/31/24 04:58 RDW 17.2 % (12.1-15.1) H 03/31/24 04:58 Plt Count 176 10^3/cmm (157-399) 03/31/24 04:58 MPV 10.3 fL (7.4-10.4) 03/31/24 04:58 Neut % (Auto) 63.7 % 03/31/24 04:58 Lymph % (Auto) 22.3 % 03/31/24 04:58 [place] % (Auto) 8.5 % 03/31/24 04:58 Eos % (Auto) 4.5 % 03/31/24 04:58 Baso % (Auto) 0.5 % 03/31/24 04:58 Neut # (Auto) 2.40 10^3/uL (1.8-7.7) 03/31/24 04:58 Lymph # (Auto) 0.8 10^3/uL (0.8-4.8) 03/31/24 04:58 [place] # (Auto) 0.3 10^3/uL (0.2-0.9) 03/31/24 04:58 Eos # (Auto) 0.2 10^3/uL (0.0-0.8) 03/31/24 04:58 Baso # (Auto) 0.0 10^3/uL (0.0-0.1) 03/31/24 04:58 Nucleated RBC % (auto) 0 % 03/31/24 04:58 Nucleated RBCs # 0.0 /100WBC 03/31/24 04:58 PT 14.40 SECONDS (12.1-14.9) 03/31/24 04:58 INR 1.08 (0.8-1.2) 03/31/24 04:58 APTT 33.6 SECONDS (23.9-36.7) 03/29/24 10:44 Sodium 144 mmol/L (136-145) 03/31/24 04:58 Potassium 4.1 mmol/L (3.5-5.1) 03/31/24 04:58 Chloride 111 mmol/L (98-107) H 03/31/24 04:58 Carbon Dioxide 23 mmol/L (22-29) 03/31/24 04:58 Anion Gap 14.1 (5-19) 03/31/24 04:58 BUN 23 mg/dL (8-23) 03/31/24 04:58 Creatinine 1.0 mg/dL (0.5-0.9) H 03/31/24 04:58 GFR Calculation Not Reportable 03/31/24 04:58 Glucose 97 mg/dL (65-115) 03/31/24 04:58 Estimat Average Glucose 103 03/29/24 10:44 Hemoglobin A1c 5.2 % (4.0-6.0) 03/29/24 10:44 Calculated Osmolality 302 mOsm/kg (285-295) H 03/31/24 04:58 Calcium 8.2 mg/dL (8.5-10.5) L 03/31/24 04:58 Phosphorus 3.8 mg/dL (2.5-4.5) 03/30/24 03:09 Magnesium 1.9 mg/dL (1.7-2.3) 03/30/24 03:09 Iron 31 ug/dL (37-145) L 03/29/24 10:44 Ferritin 34 ng/mL (15-150) 03/29/24 10:44 Total Bilirubin 0.3 mg/dL (0.15-1.2) 03/31/24 04:58 AST 26 U/L (0-32) 03/31/24 04:58 ALT 9 U/L (0-33) 03/31/24 04:58 Alkaline Phosphatase 110 U/L (35-105) H 03/31/24 04:58 Troponin T Baseline 25 ng/L (0-10) H 03/29/24 10:44 Troponin T 120 Minute 25.18 ng/L (0-10) H 03/29/24 12:49 Delta Troponin T 0.18 ABS# (0-10) 03/29/24 12:49 Troponin T Hi Sens 6Hr 39.66 ng/L (0-10) H 03/29/24 18:08 Troponin T Hi Sens 6Hr Delta 14.66 ng/L (0-12) H* 03/29/24 18:08 C-Reactive Protein 3.0 mg/L (0.0-4.9) 03/29/24 10:44 NT-Pro-B Natriuret Pep 861 pg/mL (0-450) H 03/29/24 10:44 Total Protein 6.1 g/dL (6.6-8.7) L 03/31/24 04:58 Albumin 3.4 g/dL (3.5-5.2) L 03/31/24 04:58 Globulin 2.7 g/dL (1.3-4.6) 03/31/24 04:58 Triglycerides 78 mg/dL (0-150) 03/29/24 10:44 Cholesterol 215 mg/dL (0-200) H 03/29/24 10:44 LDL Cholesterol, Calc 135 mg/dL (50-129) H 03/29/24 10:44 HDL Cholesterol 64 mg/dL (60-100) 03/29/24 10:44 LDL/HDL Ratio 2.11 RATIO (0.00-3.22) 03/29/24 10:44 Cholesterol/HDL Ratio 3.36 mg/dL (0.0-4.40) 03/29/24 10:44 TSH 2.39 uIU/mL (0.27-4.20) 03/29/24 10:44 Urine Color Yellow (Yellow) 03/29/24 10:55 Urine Appearance Clear (CLEAR) 03/29/24 10:55 Urine pH 5 (5-7) 03/29/24 10:55 Ur Specific [place] 1.015 (1.005-1.030) 03/29/24 10:55 Urine Protein Neg (Negative) 03/29/24 10:55 Urine Glucose (UA) Norm (Normal) 03/29/24 10:55 Urine Ketones Negative (Negative) 03/29/24 10:55 Urine Blood Neg (Negative) 03/29/24 10:55 Urine Nitrate Negative (Negative) 03/29/24 10:55 Urine Bilirubin Neg (Negative) 03/29/24 10:55 Urine Urobilinogen Norm mg/dL (Negative) 03/29/24 10:55 Ur Leukocyte Esterase Negative (Negative) 03/29/24 10:55 Urine RBC None /hpf (0-2) 03/29/24 10:55 Urine WBC 0-4 /hpf (0-5) H 03/29/24 10:55 Ur Squamous Epith Cells 0-4 /hpf (0-5) H 03/29/24 10:55 Amorphous Sediment Not Reportable 03/29/24 10:55 Urine Bacteria Trace /hpf (NONE) 03/29/24 10:55 Vitals Last Vital Signs Temp 97.6 F 03/31/24 07:47 Pulse 85 03/31/24 07:47 Resp 16 03/31/24 07:47 BP 174/60 03/31/24 07:47 Pulse Ox 100 03/31/24 07:47 O2 Del Method Room Air 03/31/24 07:47 Discharge Plan Discharge Patient Disposition: Home Condition: Stable Prescriptions: New aspirin 325 mg Tablet,Delayed Release (Dr/Ec) 325 mg PO DAILY 30 Days Qty: 30 0RF atorvastatin 40 mg Tablet 40 mg PO BEDTIME 30 Days Qty: 30 0RF sucralfate 100 mg/mL Suspension 1 g PO Q12H 30 Days Qty: 600 0RF Venofer 200 mg iron/10 mL solution 200 mg IV Q3D Qty: 30 0RF Rx Instructions: administer over 2-5 mins pantoprazole [Protonix] 40 mg tablet,delayed release (DR/EC) 40 mg PO BID 30 Days Qty: 60 0RF Continued potassium chloride 20 mEq tablet extended release 20 meq PO DAILY PRN (Reason: Weight Gain) meclizine 25 mg tablet 25 mg PO PRN PRN (Reason: Hypokalemia) metoprolol succinate 25 mg tablet extended release 24 hr See Rx Instructions .ROUTE .COMPLEX Qty: 180 0RF Dose Instruction: TAKE ONE TABLET BY MOUTH TWICE DAILY Rx Instructions: TAKE ONE TABLET BY MOUTH TWICE DAILY Held furosemide [Lasix] 20 mg tablet 20 mg PO BID PRN (Reason: Weight Gain) Hold Instructions: Resume on 04/01/24. Discontinued omeprazole 20 mg capsule,delayed release(DR/EC) 20 mg PO BID Discharge Orders: Discharge Order (Routine); Ordered 03/31/24 Ordered By: Doroteo Dodge Referrals: Estelle Jackman MD [Physician] - 4-7 days (cva) Kim Soto FNP [Primary Care Provider] - 1-3 days (Needs to be on and a repeat hemaglobin at appointment) Discharge Diet: Cardiac Discharge Activity: Resume usual activity Patient Instructions: GI Bleeding, Ischemic Stroke (DC), Stroke (DC), Opioid Safety Activity Restrictions/Additional Instructions: - If you have any recurrent strokelike symptoms please call 911 ? For your stroke I have discharged on aspirin 325 mg daily ? Please take Protonix and Carafate as prescribed ? If you feel lightheaded or dizzy, feel weak, develop bloody or black stools please immediately call 911 ? Please have your primary care provider recheck your hemoglobin on , hemoglobin on discharge 9.2, I would say if her hemoglobin drops below 8, she should come back to the emergency room for consideration of blood transfusion and close monitoring Please follow-up with your data developer for EGD on April 23 ? If you have a significant fall or injury or bloody or black stools please go to emergency room as aspirin is a strong blood thinner ? For your atrial fibrillation please take metoprolol as prescribed, if you develop chest pain or palpitations please go emergency room -For your iron deficiency, you will receive 3 more doses of IV Venofer 200 mg every 3 days, starting next week ? Please do not take oral iron Discharge Attestations Time Spent in Discharge Care*: greater than 30 min Quality Metrics Clinical Quality Measures [ Cerebrovascular Accident { Contraindication to Antithrombotic: None; antithrombotic prescribed; Contraindication to Anticoagulation: Overlap treatment not indicated; Contraindication to Statin: None; Statin prescribed;}. No reported AMI, CVA or VTE this stay] Coding Level of Care Code 55387 Total time (in minutes) for Discharge: 45 Diagnoses Acute CVA (cerebrovascular accident) I63.9 Atrial fibrillation I48.91 HTN (hypertension) I10 Dyslipidemia E78.5 Melanotic stools K92.1 Anemia, unspecified type D64.9 Anemia type: unspecified type GI bleed K92.2 NSTEMI (non-ST elevated myocardial infarction) I21.4 Iron deficiency E61.1
[2024-03-31 11:17] VITALS: BP 171/63; PULSE 68; RESP 16; TEMP 36.7; O2SAT 100
[2024-03-31] MEDS: metoprolol succinate ER (24 HR) 25 mg Tablet PO (11:53)
[2024-03-31] MEDS: iron sucrose 200 MG in sodium chloride 0.9% (100 ml) 100 ML 220 MG IV (11:53)
[2024-03-31 13:36] VITALS: BP 171/63; PULSE 68; RESP 16; TEMP 36.7; O2SAT 100
--- NOTE | 2024-03-31 13:38 | PC.NURSE ---
Pt states $174 dollars is missing from [facility]. She states that she did not tell staff about this money. Mirela, liability claims manager, aware. Security aware.
== END 2024-03-31 13:39 | disposition home or self-care (01) | DRG 65 ==
LOC: ER 13:12 → MEDSURG 13:58
PROVIDERS: Admitting Provider Family Medicine; Emergency Provider Emergency Medicine; Family Provider Nurse Practitioner Family; PCP Nurse Practitioner Family; Visit Provider Family Medicine
DX: I63.9 Cerebral infarction, unspecified (principal); I48.20 Chronic atrial fibrillation, unspecified; G83.24 Monoplegia of upper limb affecting left nondominant side; R29.701 NIHSS score 1; D50.9 Iron deficiency anemia, unspecified; Z66 Do not resuscitate; I10 Essential (primary) hypertension; E78.5 Hyperlipidemia, unspecified; K21.9 Gastro-esophageal reflux disease without esophagitis
CPT/HCPCS: 36415; 70450; 70496; 70498; 70551; 80048; 80053; 80061; 81001; 82728; 83036; 83540; 83735; 83880; 84100; 84443; 84484; 85014; 85018; 85025; 85610; 85730; 86140; 92523; 92610; 93005; 93306; 93880; 96374; 97161; 97165; 99285; C9113; J1756; J3490; J7030; Q9967

== ENCOUNTER 2024-04-16 08:00 | Oncology outpatient (recurring) (ONCR) | payer MEDICARE, SELFPAY ==
[2024-04-06 08:07] VITALS: BP 153/70; PULSE 63; RESP 18; TEMP 36; O2SAT 96
[2024-04-06] MEDS: iron sucrose 200 MG in sodium chloride 0.9% (100 ml) 100 ML 220 MG IV (08:19)
[2024-04-06 09:00] VITALS: BP 156/63; PULSE 61; RESP 16; TEMP 36.4; O2SAT 98
[2024-04-09] MEDS: sodium chloride 0.9% 250 ML 75 ML IV (08:27)
[2024-04-09] MEDS: iron sucrose 200 MG in sodium chloride 0.9% (100 ml) 100 ML 220 MG IV (08:27)
[2024-04-09 09:35] VITALS: BP 153/60; PULSE 61; RESP 17; TEMP 36.3; O2SAT 98
[2024-04-13 07:51] VITALS: BP 167/61; PULSE 58; RESP 16; TEMP 36.3; O2SAT 96
[2024-04-13 08:09] LABS: Basophils % 0.5 %; Eosinophils # 0.1 10^3/uL (0.0-0.8); Eosinophils % 3.3 %; Lymphocytes # 0.6 10^3/uL (0.8-4.8); Lymphocytes % 15.6 %; Mean Corpuscular Hemoglobin 26.7 pg (27-33); Mean Corpuscular Volume 89.1 fl (85-98); Mean Platelet Volume 10.2 fL (7.4-10.4); Monocytes # 0.3 10^3/uL (0.2-0.9); Monocytes % 7.6 %; Neutrophils # 2.88 10^3/uL (1.8-7.7); Neutrophils % 72.5 %; Nucleated Red Blood Cells % 0 %; Platelet Count 220 10^3/cmm (157-399); Red Blood Count 3.48 10^6/uL (3.85-5.65); Red Cell Distribution Width 19.1 % (12.1-15.1); White Blood Count 3.97 10^3/uL (3.29-11.43)
[2024-04-13] MEDS: sodium chloride 0.9% 250 ML 35 ML IV (08:17)
[2024-04-13] MEDS: iron sucrose 200 MG in sodium chloride 0.9% (100 ml) 100 ML 220 MG IV (08:17)
[2024-04-13 08:30] LABS: Iron 45 ug/dL (37-145); Percent Saturation 16.8 % (20-50); Total Iron Binding Capacity 267 mcg/dl; Unsaturated Iron Binding 222 ug/dL (112-347)
[2024-04-13 08:55] VITALS: BP 118/64; PULSE 74; RESP 16; TEMP 36.6; O2SAT 96
[2024-04-16 07:56] VITALS: BP 153/68; PULSE 66; TEMP 36.7; O2SAT 97
[2024-04-16] MEDS: iron sucrose 200 MG in sodium chloride 0.9% (100 ml) 100 ML 220 MG IV (08:14)
[2024-04-16 08:58] VITALS: BP 170/65; PULSE 58; RESP 16; TEMP 36.5; O2SAT 96
== END 2024-04-22 23:59 | disposition home or self-care (01) ==
PROVIDERS: Family Provider Nurse Practitioner Family; PCP Nurse Practitioner Family; Visit Provider Family Medicine
DX: D50.9 Iron deficiency anemia, unspecified (principal); Z79.899 Other long term (current) drug therapy; Z53.9 Procedure and treatment not carried out, unspecified reason
CPT/HCPCS: 83540; 83550; 85025; 96365; J1756; J7050

== ENCOUNTER → 2024-04-17 11:46 | Outpatient (BNVA) | payer MEDICARE, SELFPAY | PROVIDERS: Family Provider Nurse Practitioner Family; PCP Nurse Practitioner Family; Referring Provider Nurse Practitioner Family; Visit Provider Specialist | DX: I63.9 Cerebral infarction, unspecified (principal); I48.91 Unspecified atrial fibrillation; I65.21 Occlusion and stenosis of right carotid artery | CPT/HCPCS: 99204; 99205 ==

== ENCOUNTER → 2024-06-15 10:07 | Outpatient (BNVA) | payer MEDICARE, SELFPAY | PROVIDERS: Family Provider Nurse Practitioner Family; PCP Nurse Practitioner Family; Visit Provider Nurse Practitioner Family | DX: R73.09 Other abnormal glucose; Z79.01 Long term (current) use of anticoagulants | CPT/HCPCS: 80053; 83036 ==

== ENCOUNTER 2024-07-06 15:28 | Outpatient (CLI) | payer MEDICARE, SELFPAY ==
[2024-07-06 16:25] LABS: Basophils % 0.7 %; Eosinophils # 0.1 10^3/uL (0.0-0.8); Eosinophils % 2.2 %; Hematocrit 29.7 % (36-47); Lymphocytes # 0.9 10^3/uL (0.8-4.8); Lymphocytes % 18.8 %; Mean Corpuscular HGB Conc 28.6 g/dL (30-55); Mean Corpuscular Hemoglobin 24.2 pg (27-33); Mean Corpuscular Volume 84.6 fl (85-98); Mean Platelet Volume 10.8 fL (7.4-10.4); Monocytes # 0.4 10^3/uL (0.2-0.9); Monocytes % 8.2 %; Neutrophils # 3.12 10^3/uL (1.8-7.7); Neutrophils % 68.8 %; Nucleated Red Blood Cells % 0 %; Platelet Count 281 10^3/cmm (157-399); Red Blood Count 3.51 10^6/uL (3.85-5.65); Red Cell Distribution Width 17.7 % (12.1-15.1); White Blood Count 4.53 10^3/uL (3.29-11.43)
[2024-07-06 17:02] LABS: Iron 30 ug/dL (37-145); NT Pro B Type Natriuretic Pept 4144 pg/mL (0-450); Percent Saturation 9.3 % (20-50); Total Iron Binding Capacity 321 mcg/dl; Unsaturated Iron Binding 291 ug/dL (112-347); Vitamin B12 412 pg/mL (232-1245)
== END 2024-07-06 15:29 | disposition home or self-care (01) ==
LOC: LAB 15:29
PROVIDERS: Family Provider Nurse Practitioner Family; PCP Nurse Practitioner Family; Visit Provider Nurse Practitioner Family
DX: D64.9 Anemia, unspecified (principal); M79.89 Other specified soft tissue disorders; E61.1 Iron deficiency
CPT/HCPCS: 36415; 82607; 83540; 83550; 83880; 85025

== ENCOUNTER → 2024-07-09 12:44 | Outpatient (BNVA) | payer MEDICARE, SELFPAY | PROVIDERS: Family Provider Nurse Practitioner Family; PCP Nurse Practitioner Family; Visit Provider Internal Medicine | DX: I48.91 Unspecified atrial fibrillation (principal); E78.5 Hyperlipidemia, unspecified; I10 Essential (primary) hypertension; Z79.01 Long term (current) use of anticoagulants | CPT/HCPCS: 99214 ==

== ENCOUNTER 2024-07-21 10:01 | Outpatient (CLI) | payer MEDICARE, SELFPAY ==
[2024-07-21 10:41] LABS: Basophils % 0.5 %; Hematocrit 33.2 % (36-47); Lymphocytes # 0.6 10^3/uL (0.8-4.8); Lymphocytes % 15.1 %; Mean Corpuscular HGB Conc 28.3 g/dL (30-55); Mean Corpuscular Hemoglobin 22.6 pg (27-33); Mean Corpuscular Volume 79.8 fl (85-98); Mean Platelet Volume 9.9 fL (7.4-10.4); Monocytes # 0.3 10^3/uL (0.2-0.9); Monocytes % 7.8 %; Neutrophils # 2.87 10^3/uL (1.8-7.7); Neutrophils % 75.1 %; Nucleated Red Blood Cells % 0 %; Platelet Count 331 10^3/cmm (157-399); Red Blood Count 4.16 10^6/uL (3.85-5.65); Red Cell Distribution Width 17.1 % (12.1-15.1); White Blood Count 3.83 10^3/uL (3.29-11.43)
== END 2024-07-21 10:02 | disposition home or self-care (01) ==
LOC: LAB 10:02
PROVIDERS: PCP Nurse Practitioner Family; Visit Provider Nurse Practitioner Family
DX: D64.9 Anemia, unspecified (principal)
CPT/HCPCS: 85025

== ENCOUNTER 2024-07-28 09:42 | Emergency (ER) | payer MEDICARE, SELFPAY ==
--- NOTE | 2024-07-28 09:44 | XR_ITS ---
WS: [id number] XR chest 1V portable [id number] REASON FOR EXAM: dyspnea/cough FINDINGS: Moderate tortuosity and calcification of the thoracic aorta. Mild cardiomegaly. No mediastinal mass. Calcified granulomas disease in both hemithoraces. Several small calcified nodules in both lungs with a dominant noncalcified nodule in the right upper lateral lung field. This nodule is identifiable on a CT angio head neck 03/29/2024. Coarse reticular interstitial lung opacities in both lower lung guzman of unknown chronicity. XR/XR chest 1V portable [id number] IMPRESSION: Coarse interstitial changes in the lower lung guzman of unknown chronicity. Thi s may indicate chronic interstitial lung disease and central lobar emphysema ho wever early congestive failure or subacute pneumonitis not readily excluded wit jenniferut prior chest x-rays for comparison.
[2024-07-28 09:47] VITALS: BP 170/60; PULSE 66; RESP 18; TEMP 36.8; O2SAT 99; BMI 23.9
[2024-07-28 10:05] LABS: Basophils % 0.5 %; Eosinophils # 0.1 10^3/uL (0.0-0.8); Eosinophils % 2.9 %; Hematocrit 33.6 % (36-47); Lymphocytes # 0.7 10^3/uL (0.8-4.8); Lymphocytes % 15.8 %; Mean Corpuscular HGB Conc 28.6 g/dL (30-55); Mean Corpuscular Hemoglobin 23.1 pg (27-33); Mean Corpuscular Volume 80.8 fl (85-98); Mean Platelet Volume 10.4 fL (7.4-10.4); Monocytes # 0.4 10^3/uL (0.2-0.9); Monocytes % 8.7 %; Neutrophils # 2.94 10^3/uL (1.8-7.7); Neutrophils % 71.4 %; Nucleated Red Blood Cells % 0 %; Platelet Count 281 10^3/cmm (157-399); Red Blood Count 4.16 10^6/uL (3.85-5.65); Red Cell Distribution Width 18.3 % (12.1-15.1); White Blood Count 4.12 10^3/uL (3.29-11.43)
--- NOTE | 2024-07-28 10:17 | CTR_ITS ---
PROCEDURE INFORMATION: Exam: CT Head Without Contrast Exam date and time: 07/28/2024 11:02 AM Age: 88 years old Clinical indication: Weakness, extremity; Left; Additional info: Left hand TECHNIQUE: Imaging protocol: Computed tomography of the head without contrast. Radiation optimization: All CT scans at this facility use at least one of these dose optimization techniques: automated exposure control; mA and/or kV adjustment per patient size (includes targeted exams where dose is matched to clinical indication); or iterative reconstruction. COMPARISON: MR head wo con* [id number] 03/29/2024 2:10 PM RADIATION DOSE METRICS: Total DLP (mGy-cm): 1027.78 FINDINGS: Brain: There is a chronic left occipital lobe infarct. There is mild small vessel disease. There is no evidence of acute parenchymal hemorrhage, extra-axial collection, or acute infarction. There is no mass effect, midline shift, or downward herniation. Cerebral ventricles: No ventriculomegaly. Paranasal sinuses: Visualized sinuses are unremarkable. No fluid levels. Mastoid air cells: Visualized mastoid air cells are well aerated. Bones: Unremarkable. No acute fracture. Soft tissues: Unremarkable. CT/CT head wo con* [id number] IMPRESSION: 1. No evidence of acute intracranial process. 2. Chronic left occipital lobe infarct. Mild small vessel disease.
--- NOTE | 2024-07-28 10:18 | ECG_ITS ---
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 Measurements Intervals [place] Rate: 65 P: 71 WA: 155 QRS: -34 QRSD: 85 T: -36 QT: 402 QTc: 421 Interpretive Statements SINUS RHYTHM MINIMAL VOLTAGE CRITERIA FOR LVH, CONSIDER NORMAL VARIANT [MEETS CRITERIA IN ONE OF: R(aVL), S(V1), R(V5), R(V5/V6)+S(V1)] ANTERIOR MYOCARDIAL INFARCTION , PROBABLY RECENT [40+ ms Q WAVE AND/OR ST/T ABNORMALITY IN V3/V4] INFERIOR MYOCARDIAL INFARCTION , OF INDETERMINATE AGE [40+ ms Q WAVE AND/OR ST/T ABNORMALITY IN II/aVF] ACUTE [place] Compared to ECG 03/29/2024 21:34:29 Myocardial infarct finding now present T-wave abnormality no longer present Electronically Signed On 07-30-2024 22:00:02 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 [email or web address]
[2024-07-28 10:30] LABS: Alanine Aminotransferase 13 U/L (0-33); Albumin Level 3.5 g/dL (3.5-5.2); Alkaline Phosphatase 144 U/L (35-105); Anion Gap 15.8 (5-19); Aspartate Amino Transferase 34 U/L (0-32); Blood Urea Nitrogen 25 mg/dL (8-23); Carbon Dioxide 23 mmol/L (22-29); Chloride 104 mmol/L (98-107); Creatinine Clr Calc Pharmacy 35.6579; Globulin 3.2 g/dL (1.3-4.6); Glucose 132 mg/dL (65-115); Osmolality Calculated 294 mOsm/kg (285-295); Potassium 3.8 mmol/L (3.5-5.1); Sodium 139 mmol/L (136-145); Total Bilirubin 0.2 mg/dL (0.15-1.2); Total Protein 6.7 g/dL (6.6-8.7)
--- NOTE | 2024-07-28 10:37 | ED_ITS ---
HPI - Neuro Symptoms/Deficit 2 General: Chief Complaint: Neuro Symptoms/Deficit Stated Complaint: L arm/hand numbness Time Seen by Provider: 07/28/24 09:44 History of Present Illness: 88-year-old female presents emergency ro om with isolated left hand weakness that was this morning. She was seen with an acute stroke in March of this year with the same presentation. MRI done during that hospitalization did show a stroke. She has no symptoms at all now. She states she had no other symptoms in her upper arm she was able to move at her elbow and her shoulder without difficulty but her hand describes she describes as being floppy for a brief time this morning and then completely resolved. She is currently on aspirin she has not been taking any Plavix. She is on atorvastatin 40 mg as well. She has no other symptoms this morning or complaints. Associated symptoms: Deny chest pain Related Data Home Medications Medication Instructions Recorded Confirmed aspirin 325 mg tablet 325 mg PO DAILY 07/09/24 07/28/24 pantoprazole 40 mg tablet,delayed 40 mg PO BID 07/09/24 07/28/24 release atorvastatin 40 mg tablet 40 mg PO QPM 07/28/24 07/28/24 ferrous sulfate 325 mg (65 mg 325 mg PO DAILY 07/28/24 07/28/24 iron) tablet (FeroSul) gabapentin 100 mg capsule 100 mg PO DAILY 07/28/24 07/28/24 metoprolol succinate 25 mg 25 mg PO BID 07/28/24 07/28/24 tablet,extended release 24 hr omeprazole 40 mg capsule,delayed 40 mg PO DAILY 07/28/24 07/28/24 release Previous Rx's Medication Instructions Recorded furosemide 20 mg tablet (Lasix) 20 mg PO DAILY #90 tabs 07/09/24 sodium ferric gluconate complex in 62.5 mg IV ONCE 07/13/24 sucrose 62.5 mg/5 mL intravenous (Ferrlecit) clopidogrel 75 mg tablet 75 mg PO DAILY #30 tabs 07/28/24 Allergies Allergy/AdvReac Type Severity Reaction Status Date / Time No Known Allergies Allergy Verified 07/09/24 12:59 Review of Systems 2 Const: Denies: fever(s) or chills Card: Denies: chest pain Resp: Denies: dyspnea GI: Denies: abdominal pain : Denies: dysuria, urinary frequency or urinary urgency Musc: Denies: neck pain or back pain Skin/Breast: Denies: rash PFSH ED 2 PFSH: Medical History GERD (gastroesophageal reflux disease) Anticoagulation adequate with anticoagulant therapy Atrial fibrillation Dyslipidemia HTN (hypertension) Surgical History S/P bladder repair History of appendectomy Family History Mother CAD (coronary artery disease) Brother CAD (coronary artery disease) Social History Smoking and tobacco/nicotine status: never used tobacco/nicotine Alcohol intake: never Substance/Drug Use: never Adopted: No Caregiver/support person: No Lives independently: Yes service: No Current occupational status: retired Do you think of yourself as: Straight/Heterosexual Current gender identity: Female NIH stroke score 2 NIHSS: Level Of Consciousness - 1a: 0 Level Of Consciousness Questions - 1b: Both Correct Level Of Consciousness Commands - 1c: Both Correct Best Gaze - 2: Normal Visual Forrester - 3: No Visual Loss Facial Palsy - 4: N ormal Motor Arm Right - 5: No Drift Motor Arm Left - 5: No Drift Motor Leg Right - 6: No Drift Motor Leg Left - 6: No Drift Limb Ataxia - 7: A bsent Sensory - 8: Normal Best Language - 9: No Aphasia Dysarthia - 10: Normal Extinction And Inattention - 11: 0 Score: Total Score: 0 Physical Exam 2 Const: COMMON NORMALS: no acute distress GENERAL APPEARANCE: cooperative and comfortable ORIENTATION/CONSCIOUSNESS: Yes awake, Yes oriented to person, Yes oriented to place and Yes oriented to time HENMT: COMMON NORMALS: normocephalic, atraumatic and hearing grossly normal bilaterally HEAD & SCALP: normocephalic and atraumatic Resp: COMMON NORMALS: normal respiratory effort, No retractions, No use of accessory muscles and clear to auscultation bilaterally AUSCULTATION: clear to auscultation bilaterally Cardio: COMMON NORMALS: regular rate, regular rhythm and No murmurs present (Cardio) RATE: regular rate RHYTHM: regular rhythm GI: COMMON NORMALS: Soft to palpation and No hepatosplenomegaly present A USCULTATION: Yes normoactive bowel sounds PALPATION: Yes Soft to palpation, No Tenderness to palpation present (GI), No Guarding due to palpation present (GI) and Yes No hepatosplenomegaly present Extremity: COMMON NORMALS: normal to inspection, capillary refill normal, no clubbing, cyanosis or edema, no calf tenderness and no pedal edema Neuro: SENSORIUM/ORIENTATION: Yes oriented to person, Yes oriented to place and Yes oriented to time Skin: COMMON NORMALS: no rashes or lesions noted GENERAL SKIN EXAM: no rashes or lesions noted Course 2 Vital Signs: Vital signs: Vital Signs Temperature 98.2 F 07/28/24 09:47 Pulse Rate 61 07/28/24 11:51 Respiratory Rate 18 07/28/24 09:47 Blood Pressure 164/67 07/28/24 11:51 Pulse Oximetry 99 07/28/24 11:51 Oxygen Delivery Me thod Room Air 07/28/24 09:47 MDM - Neuro Symptoms/Deficit Medical Decision Making Rather odd since symptoms. Patient relates it only in her hand to the entire hand but no other part of her arm it is very transient she has no symptoms at all. Her stroke score is 0 I discussed with the on-call neurologist he recommended that she probably should go to dual antiplatelet therapy but otherwise make no other changes her CT of her head did not show anything acute. There is changes consistent with her previous strokes. Discharge her home and have her follow-up with neurology. There was some question of abnormality on her chest x-ray believe that is chronic she has no respiratory symptoms and exam is normal at this time Medical Records I reviewed the patient's medical records. Lab Data I reviewed the patient's lab results. 07/28/24 09:57 07/28/24 09:57 Radiology Impressions Chest X-Ray 07/28/24 09:44 IMPRESSION: Coarse interstitial changes in the lower lung forrester of unknown chronicity. This may indicate chronic interstitial lung disease and central lobar emphysema however early congestive failure or subacute pneumonitis not readily excluded without prior chest x-rays for comparison. Head CT 07/28/24 10:17 IMPRESSION: 1. No evidence of acute intracranial process. 2. Chronic left occipital lobe infarct. Mild small vessel disease. Laboratory Results WBC 4.12 10^3/uL (3.29-11.43) 07/28/24 09:57 RBC 4.16 10^6/uL (3.85-5.65) 07/28/24 09:57 Hgb 9.60 g/dL (11.27-16.99) L 07/28/24 09:57 Hct 33.6 % (36-47) L 07/28/24 09:57 MCV 80.8 fl (85-98) L 07/28/24 09:57 MCH 23.1 pg (27-33) L 07/28/24 09:57 MCHC 28.6 g/dL (30-55) L 07/28/24 09:57 RDW 18.3 % (12.1-15.1) H 07/28/24 09:57 Plt Count 281 10^3/cmm (157-399) 07/28/24 09:57 MPV 10.4 fL (7.4-10.4) 07/28/24 09:57 Neut % (Auto) 71.4 % 07/28/24 09:57 Lymph % (Auto) 15.8 % 07/28/24 09:57 [place] % (Auto) 8.7 % 07/28/24 09:57 Eos % (Auto) 2.9 % 07/28/24 09:57 Baso % (Auto) 0.5 % 07/28/24 09:57 Neut # (Auto) 2.94 10^3/uL (1.8-7.7) 07/28/24 09:57 Lymph # (Auto) 0.7 10^3/uL (0.8-4.8) L 07/28/24 09:57 [place] # (Auto) 0.4 10^3/uL (0.2-0.9) 07/28/24 09:57 Eos # (Auto) 0.1 10^3/uL (0.0-0.8) 07/28/24 09:57 Baso # (Auto) 0.0 10^3/uL (0.0-0.1) 07/28/24 09:57 Nucleated RBC % (auto) 0 % 07/28/24 09:57 Nucleated RBCs # 0.0 /100WBC 07/28/24 09:57 Sodium 139 mmol/L (136-145) 07/28/24 09:57 Potassium 3.8 mmol/L (3.5-5.1) 07/28/24 09:57 Chloride 104 mmol/L (98-107) 07/28/24 09:57 Carbon Dioxide 23 mmol/L (22-29) 07/28/24 09:57 Anion Gap 15.8 (5-19) 07/28/24 09:57 BUN 25 mg/dL (8-23) H 07/28/24 09:57 Creatinine 1.0 mg/dL (0.5-0.9) H 07/28/24 09:57 GFR Calculation Not Reportable 07/28/24 09:57 Glucose 132 mg/dL (65-115) H 11 09:57 Calculated Osmolality 294 mOsm/kg (285-295) 07/28/24 09:57 Calcium 8.0 mg/dL (8.5-10.5) L 07/28/24 09:57 Total Bilirubin 0.2 mg/dL (0.15-1.2) 07/28/24 09:57 AST 34 U/L (0-32) H 07/28/24 09:57 ALT 13 U/L (0-33) 07/28/24 09:57 Alkaline Phosphatase 144 U/L (35-105) H 07/28/24 09:57 Total Protein 6.7 g/dL (6.6-8.7) 07/28/24 09:57 Albumin 3.5 g/dL (3.5-5.2) 07/28/24 09:57 Globulin 3.2 g/dL (1.3-4.6) 07/28/24 09:57 All radiology interpretation(s) finalized by discharge Discharge Plan Discharge Patient Disposition: Home Clinical Impression: Hx of ischemic right MCA stroke Condition: Stable Prescriptions: New clopidogrel 75 mg tablet 75 mg PO DAILY Qty: 30 0RF No Action aspirin 325 mg tablet 325 mg PO DAILY furosemide [Lasix] 20 mg tablet 20 mg PO DAILY Qty: 90 3RF pantoprazole 40 mg tablet,delayed release (DR/EC) 40 mg PO BID sodium ferric gluconat-sucrose [Ferrlecit] 62.5 mg/5 mL solution 62.5 mg IV ONCE omeprazole 40 mg capsule,delayed release(DR/EC) 40 mg PO DAILY ferrous sulfate [FeroSul] 325 mg (65 mg iron) tablet 325 mg PO DAILY gabapentin 100 mg capsule 100 mg PO DAILY atorvastatin 40 mg tablet 40 mg PO QPM metoprolol succinate 25 mg tablet extended release 24 hr 25 mg PO BID Discharge Orders: Discharge ED (Routine); Ordered 07/28/24 Ordered By: Khai Rider Referrals: Kim Soto FNP [Primary Care Provider] - Discharge Diet: Usual diet Discharge Activity: Increase activity as tolerated Patient Instructions: Opioid Safety, Pain Management Activity Restrictions/Additional Instructions: Thank you for choosing [facility] for your healthcare needs today. It is very important that you follow up as instructed or that you return to the Emergency Department should you have concerns or if your condition changes or worsens in any way. You are seen today with transient episode of difficulty functioning with your left hand. This is likely related to your previous stroke reviewed with our on- call neurologist he recommends adding Plavix to your regimen since your symptoms have already resolved. There is no acute changes on the CT today. Recommend following up with neurology within the next week. Return if you have further problems. Coding Level of Care Code ED Nuclear Reactor Operator for Sherin Benjamin
[2024-07-28 11:50] VITALS: BP 163/67; PULSE 61; O2SAT 99
[2024-07-28 11:51] VITALS: BP 164/67; PULSE 61; O2SAT 99
--- NOTE | 2024-07-31 02:22 | DCPLANNER ---
Message sent to Neurology for follow up.
== END 2024-07-28 12:20 | disposition home or self-care (01) ==
PROVIDERS: Emergency Provider Family Medicine; PCP Nurse Practitioner Family
DX: R53.1 Weakness (principal); Z86.73 Personal history of transient ischemic attack (TIA), and cerebral infarction without residual deficits; Z79.82 Long term (current) use of aspirin; I10 Essential (primary) hypertension
CPT/HCPCS: 70450; 71045; 80053; 85025; 93005; 99285

== ENCOUNTER 2024-08-05 10:36 | Outpatient (CLI) | payer MEDICARE, SELFPAY ==
[2024-08-05 14:14] LABS: Iron 23 ug/dL (37-145)
== END 2024-08-05 10:37 | disposition home or self-care (01) ==
LOC: LAB 10:36
PROVIDERS: PCP Nurse Practitioner Family; Visit Provider Nurse Practitioner Family
DX: D64.9 Anemia, unspecified (principal)
CPT/HCPCS: 36415; 83540

== ENCOUNTER 2024-08-06 13:17 | Outpatient (CLI) | payer MEDICARE, SELFPAY ==
[2024-08-06 13:42] LABS: Hematocrit 31.8 % (36-47)
== END 2024-08-06 13:18 | disposition home or self-care (01) ==
LOC: LAB 13:19
PROVIDERS: PCP Nurse Practitioner Family; Visit Provider Nurse Practitioner Family
DX: D64.9 Anemia, unspecified (principal)
CPT/HCPCS: 36415; 85014; 85018

== ENCOUNTER 2024-08-06 13:43 | Emergency (ER) | payer MEDICARE, SELFPAY ==
--- NOTE | 2024-08-06 13:52 | CTR_ITS ---
PROCEDURE INFORMATION: Exam: CT Head Without Contrast Exam date and time: 08/06/2024 3:10 PM Age: 88 years old Clinical indication: Other: TIA TECHNIQUE: Imaging protocol: Computed tomography of the head without contrast. Radiation optimization: All CT scans at this facility use at least one of these dose optimization techniques: automated exposure control; mA and/or kV adjustment per patient size (includes targeted exams where dose is matched to clinical indication); or iterative reconstruction. COMPARISON: CT head wo con* [id number] 07/28/2024 11:02 AM RADIATION DOSE METRICS: Total DLP (mGy-cm): 1113.48 FINDINGS: Brain: Mild nonspecific white matter low attenuation which may be related to microvascular ischemic changes. No acute confluent lobar ischemic infarct. Stable encephalomalacia involving the left occipital lobe compatible with old infarct. No acute intracranial hemorrhage. Cerebral ventricles: The ventricles and sulci are normal in size and shape for the patient's stated age. Paranasal sinuses: No fluid levels. Mastoid air cells: Visualized mastoid air cells are well aerated. Bones: No acute calvarial fracture. Soft tissues: Visualized soft tissues are unremarkable. CT/CT head wo con* [id number] IMPRESSION: No acute intracranial abnormality. If symptoms persist, consider further evaluation with MRI, if MRI is clinically safe to obtain.
--- NOTE | 2024-08-06 13:52 | XR_ITS ---
WS: [id number] Portable AP upright chest, 08/06/2024 Clinical Data: htn Comparison: Portable chest, 07/28/2024 Findings: No nodules, masses or effusions are seen. The heart is normal. The pulmonary vascularity is not increased. No pneumonia or pneumothorax is seen. There are coarse reticular markings throughout both lungs unchanged. The aortic arch and descending thoracic aorta show calcification and tortuosity . Monitor leads are on the chest wall. XR/XR chest 1V portable [id number] Impression: 1. Chronic lung disease unchanged. 2. Atherosclerosis.
[2024-08-06 13:54] VITALS: BP 188/69; PULSE 81; RESP 18; TEMP 36.8; O2SAT 98
--- NOTE | 2024-08-06 13:54 | ED_ITS ---
HPI - Neuro Symptoms/Deficit 2 General: Chief Complaint: Neuro Symptoms/Deficit Stated Complaint: slurred speech, dizziness Time Seen by Provider: 08/06/24 13:45 History of Present Illness: Patient was over at the [facility] getting her blood demetris and when she walked out she had sudden onset slurring of her words and just about dropped the gum out of her mouth to the left side. She noticed this and her daughter noticed this. This lasted approximately 10 minutes. Patient is 100% back to normal now with no deficits. Patient has a history of recent stroke and what sounds like a TIA after that. Patient has no deficit now. Patient does appear to be on aspirin 325 and Plavix 75, atorvastatin 40, patient's NIH upon arrival to the ER was 0. Related Data Home Medications Medication Instructions Recorded Confirmed aspirin 325 mg tablet 325 mg PO DAILY 07/09/24 08/06/24 atorvastatin 40 mg tablet 40 mg PO QPM 07/28/24 08/06/24 metoprolol succinate 25 mg 25 mg PO BID 07/28/24 08/06/24 tablet,extended release 24 hr omeprazole 40 mg capsule,delayed 40 mg PO DAILY 07/28/24 08/06/24 release Previous Rx's Medication Instructions Recorded furosemide 20 mg tablet (Lasix) 20 mg PO DAILY #90 tabs 07/09/24 clopidogrel 75 mg tablet 75 mg PO DAILY #30 tabs 07/28/24 Allergies Allergy/AdvReac Type Severity Reaction Status Date / Time No Known Allergies Allergy Verified 07/09/24 12:59 Review of Systems 2 General: Reports: 10 or more systems reviewed and unremarkable except in HPI and below PFSH ED 2 PFSH: Medical History GERD (gastroesophageal reflux disease) Anticoagulation adequate with anticoagulant therapy Atrial fibrillation Dyslipidemia HTN (hypertension) Surgical History S/P bladder repair History of appendectomy Family History Mother CAD (coronary artery disease) Brother CAD (coronary artery disease) Social History Smoking and tobacco/nicotine status: never used tobacco/nicotine Alcohol intake: never Substance/Drug Use: never Adopted: No Caregiver/support person: No Lives independently: Yes service: No Current occupational status: retired Do you think of yourself as: Straight/Heterosexual Current gender identity: Female NIH stroke score 2 NIHSS: Level Of Consciousness - 1a: 0 Level Of Consciousness Questions - 1b: Both Correct Level Of Consciousness Commands - 1c: Both Correct Best Gaze - 2: Normal Visual Forrester - 3: No Visual Loss Facial Palsy - 4: N ormal Motor Arm Right - 5: No Drift Motor Arm Left - 5: No Drift Motor Leg Right - 6: No Drift Motor Leg Left - 6: No Drift Limb Ataxia - 7: A bsent Sensory - 8: Normal Best Language - 9: No Aphasia Dysarthia - 10: Normal Extinction And Inattention - 11: 0 Score: Total Score: 0 Physical Exam 2 Const: COMMON NORMALS: no acute distress, average body habitus, patient oriented x3, no limitations, healthy appearing, alert and well nourished HENMT: COMMON NORMALS: normocephalic, hearing grossly normal bilaterally, external ears normal, Normal external nose present and moist oral mucous membranes HEAD & SCALP: normocephalic NOSE: Normal external nose present EXTERNAL EAR: Yes external ears normal Eye: COMMON NORMALS: Equal, round and reactive pupils present, EOMs intact bilaterally, conjunctivae normal and no scleral icterus CONJUNCTIVA: Yes conjunctivae normal PUPIL: Yes Equal, round and reactive pupils present Neck/C-Spine: COMMON NORMALS: no JVD Chest: COMMONS NORMALS: normal inspection of the chest and normal palpation of entire chest wall Resp: COMMON NORMALS: normal respiratory effort, No retractions, No use of accessory muscles and clear to auscultation bilaterally AUSCULTATION: clear to auscultation bilaterally Cardio: COMMON NORMALS: no JVD, regular rate, regular rhythm, S1 normal heart sound present, S2 normal heart sound present, No gallops present (Cardio), No clicks present (Cardio), No murmurs present (Cardio) and No rub (Cardio) R ATE: regular rate RHYTHM: regular rhythm HEART SOUNDS: S1 normal heart sound present and S2 normal heart sound present GI: COMMON NORMALS: Normal to inspection, nondistended, normoactive bowel sounds present, Soft to palpation, non-tender, No hepatosplenomegaly present and no masses PALPATION: Yes Soft to palpation and Yes No hepatosplenomegaly present Neuro: COMMON NORMALS: patient oriented x3 SENSORIUM/ORIENTATION: Yes alert Course 2 Vital Signs: Vital signs: Vital Signs Temperature 98.2 F 08/06/24 13:54 Pulse Rate 67 08/06/24 14:32 Respiratory Rate 15 08/06/24 14:32 Blood Pressure 177/72 08/06/24 14:32 Pulse Oximetry 98 08/06/24 14:32 Oxygen Delivery Me thod Room Air 08/06/24 13:54 MDM - Neuro Symptoms/Deficit Medical Decision Making Discussed this case with Dr. Jackman who saw her while she was in the hospital and has an appointment followed up with a couple weeks. Dr. Jackman said we could stop her Lasix until her really push the fluids and stay really well- hydrated as this will lessen the viscosity of her blood lessen the risk of clots. She is already anticoagulated and had a high risk due to her GI bleed. Patient will be discharged home instructed to keep her appointment with Dr. Jackman Medical Records I reviewed the patient's medical records. Lab Data I reviewed the patient's lab results. 08/06/24 14:00 08/06/24 14:00 Radiology Impressions Chest X-Ray 08/06/24 13:52 Impression: 1. Chronic lung disease unchanged. 2. Atherosclerosis. Head CT 08/06/24 13:52 IMPRESSION: No acute intracranial abnormality. If symptoms persist, consider further evaluation with MRI, if MRI is clinically safe to obtain. Laboratory Results WBC 3.99 10^3/uL (3.29-11.43) 08/06/24 14:00 RBC 4.30 10^6/uL (3.85-5.65) 08/06/24 14:00 Hgb 9.80 g/dL (11.27-16.99) L 08/06/24 14:00 Hct 33.4 % (36-47) L 08/06/24 14:00 MCV 77.7 fl (85-98) L 08/06/24 14:00 MCH 22.8 pg (27-33) L 08/06/24 14:00 MCHC 29.3 g/dL (30-55) L 08/06/24 14:00 RDW 18.4 % (12.1-15.1) H 08/06/24 14:00 Plt Count 256 10^3/cmm (157-399) 08/06/24 14:00 MPV 9.8 fL (7.4-10.4) 08/06/24 14:00 Neut % (Auto) 60.8 % 08/06/24 14:00 Lymph % (Auto) 26.1 % 08/06/24 14:00 [place] % (Auto) 9.3 % 08/06/24 14:00 Eos % (Auto) 2.8 % 08/06/24 14:00 Baso % (Auto) 0.5 % 08/06/24 14:00 Neut # (Auto) 2.43 10^3/uL (1.8-7.7) 08/06/24 14:00 Lymph # (Auto) 1.0 10^3/uL (0.8-4.8) 08/06/24 14:00 [place] # (Auto) 0.4 10^3/uL (0.2-0.9) 08/06/24 14:00 Eos # (Auto) 0.1 10^3/uL (0.0-0.8) 08/06/24 14:00 Baso # (Auto) 0.0 10^3/uL (0.0-0.1) 08/06/24 14:00 Nucleated RBC % (auto) 0 % 08/06/24 14:00 Nucleated RBCs # 0.0 /100WBC 08/06/24 14:00 PT 14.10 SECONDS (12.1-14.9) 08/06/24 14:00 INR 1.05 (0.8-1.2) 08/06/24 14:00 Sodium 140 mmol/L (136-145) 08/06/24 14:00 Potassium 4.3 mmol/L (3.5-5.1) 08/06/24 14:00 Chloride 105 mmol/L (98-107) 08/06/24 14:00 Carbon Dioxide 24 mmol/L (22-29) 08/06/24 14:00 Anion Gap 15.3 (5-19) 08/06/24 14:00 BUN 26 mg/dL (8-23) H 08/06/24 14:00 Creatinine 1.3 mg/dL (0.5-0.9) H 08/06/24 14:00 GFR Calculation Not Reportable 08/06/24 14:00 Glucose 91 mg/dL (65-115) 08/06/24 14:00 POC Glucose 96 mg/dL (70-110) 08/06/24 14:06 Calculated Osmolality 294 mOsm/kg (285-295) 08/06/24 14:00 Calcium 8.2 mg/dL (8.5-10.5) L 08/06/24 14:00 Magnesium 2.1 mg/dL (1.7-2.3) 08/06/24 14:00 Total Bilirubin 0.3 mg/dL (0.15-1.2) 08/06/24 14:00 AST 30 U/L (0-32) 08/06/24 14:00 ALT 11 U/L (0-33) 08/06/24 14:00 Alkaline Phosphatase 138 U/L (35-105) H 08/06/24 14:00 Troponin T Baseline 46 ng/L (0-10) H 08/06/24 14:00 Total Protein 6.6 g/dL (6.6-8.7) 08/06/24 14:00 Albumin 3.8 g/dL (3.5-5.2) 08/06/24 14:00 Globulin 2.8 g/dL (1.3-4.6) 08/06/24 14:00 TSH 2.51 uIU/mL (0.27-4.20) 08/06/24 14:00 Urine Color Yellow (Yellow) 08/06/24 14:49 Urine Appearance Clear (CLEAR) 08/06/24 14:49 Urine pH 5.5 (5-7) 08/06/24 14:49 Ur Specific [place] 1.009 (1.005-1.030) 08/06/24 14:49 Urine Protein Negative (Negative) 08/06/24 14:49 Urine Glucose (UA) Negative (Normal) 08/06/24 14:49 Urine Ketones Negative (Negative) 08/06/24 14:49 Urine Blood Negative (Negative) 08/06/24 14:49 Urine Nitrate Negative (Negative) 08/06/24 14:49 Urine Bilirubin Negative (Negative) 08/06/24 14:49 Urine Urobilinogen 0.2 mg/dL (Negative) 08/06/24 14:49 Ur Leukocyte Esterase Negative (Negative) 08/06/24 14:49 Urine RBC 0-2 /hpf (0-2) 08/06/24 14:49 Urine WBC 0-5 /hpf (0-5) 08/06/24 14:49 Ur Squamous Epith Cells 0-5 /hpf (0-5) 08/06/24 14:49 Amorphous Sediment Not Reportable 08/06/24 14:49 Urine Bacteria None seen /hpf (NONE) 08/06/24 14:49 Hyaline Casts 0.40 /lpf 08/06/24 14:49 Salicylates 0.7 mg/dL (3-10) L 08/06/24 14:00 Urine Opiates Screen Negative ng/mL (Negative) 08/06/24 14:49 Acetaminophen < 5.0 ug/mL (10-30) L 08/06/24 14:00 Ur Barbiturates Screen Negative ng/mL (Negative) 08/06/24 14:49 Ur Phencyclidine Scrn Negative ng/mL (Negative) 08/06/24 14:49 Ur Amphetamines Screen Negative ng/mL (Negative) 08/06/24 14:49 U Benzodiazepines Scrn Negative ng/mL (Negative) 08/06/24 14:49 Urine Cocaine Screen Negative ng/mL (Negative) 08/06/24 14:49 U Marijuana (THC) Screen Negative ng/mL (Negative) 08/06/24 14:49 Ethyl Alcohol < 10 mg/dL (0-10) 08/06/24 14:00 All radiology interpretation(s) finalized by discharge Discharge Plan Discharge Patient Disposition: Home Clinical Impression: Brain TIA Condition: Stable Prescriptions: No Action aspirin 325 mg tablet 325 mg PO DAILY furosemide [Lasix] 20 mg tablet 20 mg PO DAILY Qty: 90 3RF omeprazole 40 mg capsule,delayed release(DR/EC) 40 mg PO DAILY atorvastatin 40 mg tablet 40 mg PO QPM metoprolol succinate 25 mg tablet extended release 24 hr 25 mg PO BID clopidogrel 75 mg tablet 75 mg PO DAILY Qty: 30 0RF Discharge Orders: Discharge ED (Routine); Ordered 08/06/24 Ordered By: Marcelino Mcqueen Referrals: Kim Soto FNP [Primary Care Provider] - 1 week Patient Instructions: TIA Activity Restrictions/Additional Instructions: Your case was discussed with Dr. Jackman the neurologist. She recommended that we stop your Lasix and have you drink lots of fluids and stay well- hydrated. This will help decrease the viscosity of your blood and therefore help you to be less prone to blood clots. Please continue all of your medicines as directed. Please keep your appointment with Dr. Jackman on 08/19 as previously arranged. If the symptoms continue or worsen please feel free to return to the ER for further evaluation and treatment. Thank you for choosing [facility] for your healthcare needs today. Please realize that you were seen in the emergency department and that we are providing you with an emergency medical screening exam and this may not be a complete and all exclusive of all testing and/or medical workup we may need to determine your element or severity of your illness. It is very important that you follow-up as instructed with your primary care provider or specialist for the additional evaluation and to discuss your medical treatment plan. You may return to the emergency department should you have concerns or if your condition changes or worsens in any way. Coding Level of Care Code ED Product Info Specialist for Sherin Benjamin
[2024-08-06 14:12] LABS: Basophils % 0.5 %; Eosinophils # 0.1 10^3/uL (0.0-0.8); Eosinophils % 2.8 %; Hematocrit 33.4 % (36-47); Lymphocytes % 26.1 %; Mean Corpuscular HGB Conc 29.3 g/dL (30-55); Mean Corpuscular Hemoglobin 22.8 pg (27-33); Mean Corpuscular Volume 77.7 fl (85-98); Mean Platelet Volume 9.8 fL (7.4-10.4); Monocytes # 0.4 10^3/uL (0.2-0.9); Monocytes % 9.3 %; Neutrophils # 2.43 10^3/uL (1.8-7.7); Neutrophils % 60.8 %; Nucleated Red Blood Cells % 0 %; Platelet Count 256 10^3/cmm (157-399); Red Cell Distribution Width 18.4 % (12.1-15.1); White Blood Count 3.99 10^3/uL (3.29-11.43)
--- NOTE | 2024-08-06 14:13 | ECG_ITS ---
[facility] Test Date: 2024-08-06 Pat Name: Anna Chávez Department: Room: Gender: Female Shotblast Operator: : 1935 Requested By: Marcelino Mcqueen Order Number: [id number] Kurt MD: Julian Lyons M.D. Measurements Intervals [place] Rate: 76 P: 67 NC: 157 QRS: -20 QRSD: 87 T: -15 QT: 373 QTc: 422 Interpretive Statements SINUS RHYTHM POSSIBLE ANTERIOR MYOCARDIAL INFARCTION , PROBABLY OLD [30 ms Q WAVE IN V3/V4, OR R < 0.2 mV IN V4] INFERIOR MYOCARDIAL INFARCTION , OF INDETERMINATE AGE [40+ ms Q WAVE AND/OR ST/T ABNORMALITY IN II/aVF] Compared to ECG 07/28/2024 10:18:53 No significant changes Electronically Signed On 08-06-2024 21:45:09 MONKEY KEEPER by Julian Lyons M.D. [email or web address]
[2024-08-06 14:14] LABS: Glucose Point of Care 96 mg/dL (70-110)
[2024-08-06 14:32] VITALS: BP 177/72; PULSE 67; RESP 15; O2SAT 98
[2024-08-06 14:35] LABS: Troponin(5th) Baseline 46 ng/L (0-10)
[2024-08-06 14:44] LABS: Alanine Aminotransferase 11 U/L (0-33); Albumin Level 3.8 g/dL (3.5-5.2); Alkaline Phosphatase 138 U/L (35-105); Anion Gap 15.3 (5-19); Aspartate Amino Transferase 30 U/L (0-32); Blood Urea Nitrogen 26 mg/dL (8-23); Calcium 8.2 mg/dL (8.5-10.5); Carbon Dioxide 24 mmol/L (22-29); Chloride 105 mmol/L (98-107); Globulin 2.8 g/dL (1.3-4.6); Glucose 91 mg/dL (65-115); Magnesium 2.1 mg/dL (1.7-2.3); Osmolality Calculated 294 mOsm/kg (285-295); Potassium 4.3 mmol/L (3.5-5.1); Salicylate 0.7 mg/dL (3-10); Sodium 140 mmol/L (136-145); Thyroid Stimulating Hormone 2.51 uIU/mL (0.27-4.20); Total Bilirubin 0.3 mg/dL (0.15-1.2); Total Protein 6.6 g/dL (6.6-8.7)
[2024-08-06 14:45] LABS: Acetaminophen < 5.0 ug/mL (10-30); Alcohol Level < 10 mg/dL (0-10)
[2024-08-06 14:51] LABS: INR 1.05 (0.8-1.2)
--- NOTE | 2024-08-06 14:51 | PC.NURSE ---
@1441 PT AMB WITH ASSISTANCE TO THE BATHROOM WITHOUT DIFFICULTIES. 1443 PT BACK TO ROOM AND GETTING HER SITUATED IN THE BED. PT SLURRING WORDS AND HAVING DIFFICULTIES FINDING WORDS. SLIGHT DROOP AT RT SIDE MOUTH. PT VISIBLY UPSET AND TEARFUL. DR MOSS NOTIFIED IMMEDIATELY AND IN ROOM TO ASSESS PATIENT. 1446- PT NO LONGER HAVING SYMPTOMS. CALLED CT TO SEE WHAT HOLD UP WAS AND THAT SHE HAS TO GO [facility].
[2024-08-06 14:58] LABS: Bilirubin Urine Negative (Negative); Blood Urine Negative (Negative); Glucose Urine UA Negative (Normal); Ketones Urine Negative (Negative); Leukocyte Esterase Urine Negative (Negative); Nitrate Urine Negative (Negative); Protein Urine Negative (Negative); Specific Gravity, Urine 1.009 (1.005-1.030); Urine Appearance Clear (CLEAR); Urine Color Yellow (Yellow); Urobilinogen Urine 0.2 mg/dL (Negative); pH Urine 5.5 (5-7)
[2024-08-06 15:01] LABS: Add Urine Microscopic? YES; Bacteria Urine None Seen /hpf; RBC Urine 0-2 /hpf (0-2); Squamous Epithelial Cell Urine 0-5 /hpf (0-5); WBC Urine 0-5 /hpf (0-5)
[2024-08-06 15:06] LABS: Amphetamines Screen Urine Negative (Negative); Barbiturates Screen Urine Negative (Negative); Benzodiazepines Screen Urine Negative (Negative); Cocaine Screen Urine Negative (Negative); Opiate Screen Urine Negative (Negative); PCP Screen Urine Negative (Negative); THC Screen Urine Negative (Negative)
--- NOTE | 2024-08-06 15:53 | ECG_ITS ---
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
[2024-08-06 16:48] LABS: Troponin 5 2HR 46.02 ng/L (0-10); Troponin 5 2HR Delta 0.02 ABS# (0-10)
[2024-08-06 16:53] VITALS: BP 175/80; PULSE 87; RESP 16; O2SAT 95
== END 2024-08-06 16:55 | disposition home or self-care (01) ==
PROVIDERS: Emergency Provider Emergency Medicine; PCP Nurse Practitioner Family
DX: G45.9 Transient cerebral ischemic attack, unspecified (principal); I48.91 Unspecified atrial fibrillation; I10 Essential (primary) hypertension; Z79.82 Long term (current) use of aspirin
CPT/HCPCS: 36416; 70450; 71045; 80053; 80306; 80307; 81001; 82962; 83735; 84443; 84484; 85025; 85610; 93005; 99285

== ENCOUNTER → 2024-08-19 08:27 | Outpatient (BNVA) | payer MEDICARE, SELFPAY | PROVIDERS: PCP Nurse Practitioner Family; Visit Provider Specialist | DX: Z09 Encounter for follow-up examination after completed treatment for conditions other than malignant neoplasm (principal); I48.91 Unspecified atrial fibrillation; G45.1 Carotid artery syndrome (hemispheric); H53.461 Homonymous bilateral field defects, right side | CPT/HCPCS: 99214; 99215 ==

== ENCOUNTER 2024-09-15 11:32 | Outpatient (CLI) | payer MEDICARE, SELFPAY ==
[2024-09-15 12:11] LABS: Basophils % 0.2 %; Eosinophils # 0.1 10^3/uL (0.0-0.8); Eosinophils % 1.6 %; Hematocrit 41.5 % (36-47); Lymphocytes # 0.8 10^3/uL (0.8-4.8); Lymphocytes % 17.9 %; Mean Corpuscular HGB Conc 29.6 g/dL (30-55); Mean Corpuscular Hemoglobin 24.1 pg (27-33); Mean Corpuscular Volume 81.4 fl (85-98); Mean Platelet Volume 9.9 fL (7.4-10.4); Monocytes # 0.5 10^3/uL (0.2-0.9); Monocytes % 10.2 %; Neutrophils # 3.07 10^3/uL (1.8-7.7); Neutrophils % 69.6 %; Nucleated Red Blood Cells % 0 %; Platelet Count 224 10^3/cmm (157-399); White Blood Count 4.41 10^3/uL (3.29-11.43)
== END 2024-09-15 11:33 | disposition home or self-care (01) ==
LOC: LAB 11:34
PROVIDERS: PCP Nurse Practitioner Family; Visit Provider Nurse Practitioner Family
DX: D64.9 Anemia, unspecified (principal)
CPT/HCPCS: 36415; 85025

== ENCOUNTER → 2024-09-30 08:45 | Outpatient (BNVA) | payer MEDICARE, SELFPAY | PROVIDERS: PCP Nurse Practitioner Family; Visit Provider Nurse Practitioner Family | DX: N39.0 Urinary tract infection, site not specified (principal); R39.9 Unspecified symptoms and signs involving the genitourinary system | CPT/HCPCS: 81000; 87086 ==

== ENCOUNTER 2025-01-11 10:49 | Outpatient (CLI) | payer MEDICARE, SELFPAY ==
[2025-01-11 11:50] LABS: Basophils % 0.5 %; Eosinophils # 0.1 10^3/uL (0.0-0.8); Eosinophils % 2.7 %; Hematocrit 31.3 % (36-47); Lymphocytes # 0.7 10^3/uL (0.8-4.8); Lymphocytes % 19.7 %; Mean Corpuscular HGB Conc 30.4 g/dL (30-55); Mean Corpuscular Hemoglobin 27.9 pg (27-33); Mean Corpuscular Volume 92.1 fl (85-98); Monocytes # 0.3 10^3/uL (0.2-0.9); Monocytes % 7.6 %; Neutrophils # 2.55 10^3/uL (1.8-7.7); Nucleated Red Blood Cells % 0 %; Platelet Count 194 10^3/cmm (157-399); Red Cell Distribution Width 16.5 % (12.1-15.1)
[2025-01-11 12:06] LABS: Blood Urea Nitrogen 33 mg/dL (8-23); Calcium 8.5 mg/dL (8.5-10.5); Carbon Dioxide 23 mmol/L (22-29); Chloride 107 mmol/L (98-107); Glucose 108 mg/dL (65-115); Osmolality Calculated 298 mOsm/kg (285-295); Sodium 140 mmol/L (136-145)
[2025-01-11 12:13] LABS: Anion Gap 13.8 (5-19); Potassium 3.8 mmol/L (3.5-5.1)
== END 2025-01-11 10:50 | disposition home or self-care (01) ==
PROVIDERS: PCP Nurse Practitioner Family
DX: K92.2 Gastrointestinal hemorrhage, unspecified (principal); K31.819 Angiodysplasia of stomach and duodenum without bleeding
CPT/HCPCS: 36415; 80048; 85025

== ENCOUNTER 2025-02-11 08:07 | Outpatient (CLI) | payer MEDICARE, SELFPAY ==
[2025-02-11 08:58] LABS: Basophils % 0.6 %; Eosinophils # 0.1 10^3/uL (0.0-0.8); Eosinophils % 2.6 %; Hematocrit 36.6 % (36-47); Lymphocytes # 0.5 10^3/uL (0.8-4.8); Lymphocytes % 14.9 %; Mean Corpuscular HGB Conc 29.8 g/dL (30-55); Mean Corpuscular Hemoglobin 28.2 pg (27-33); Mean Corpuscular Volume 94.6 fl (85-98); Mean Platelet Volume 10.2 fL (7.4-10.4); Monocytes # 0.3 10^3/uL (0.2-0.9); Monocytes % 9.3 %; Neutrophils # 2.47 10^3/uL (1.8-7.7); Nucleated Red Blood Cells % 0 %; Platelet Count 199 10^3/cmm (157-399); Red Blood Count 3.87 10^6/uL (3.85-5.65); Red Cell Distribution Width 15.8 % (12.1-15.1); White Blood Count 3.43 10^3/uL (3.29-11.43)
== END 2025-02-11 08:08 | disposition home or self-care (01) ==
PROVIDERS: PCP Nurse Practitioner Family
DX: K92.2 Gastrointestinal hemorrhage, unspecified (principal)
CPT/HCPCS: 36415; 85025

== ENCOUNTER 2025-03-19 09:41 | Outpatient (CLI) | payer MEDICARE, SELFPAY ==
[2025-03-19 10:37] LABS: Basophils % 0.5 %; Eosinophils # 0.1 10^3/uL (0.0-0.8); Eosinophils % 3.2 %; Hematocrit 39.7 % (36-47); Lymphocytes # 0.9 10^3/uL (0.8-4.8); Lymphocytes % 20.4 %; Mean Corpuscular HGB Conc 29.7 g/dL (30-55); Mean Corpuscular Hemoglobin 28.4 pg (27-33); Mean Corpuscular Volume 95.7 fl (85-98); Monocytes # 0.4 10^3/uL (0.2-0.9); Monocytes % 10.1 %; Neutrophils # 2.84 10^3/uL (1.8-7.7); Neutrophils % 65.1 %; Nucleated Red Blood Cells % 0 %; Platelet Count 199 10^3/cmm (157-399); Red Blood Count 4.15 10^6/uL (3.85-5.65); Red Cell Distribution Width 14.6 % (12.1-15.1); White Blood Count 4.36 10^3/uL (3.29-11.43)
== END 2025-03-19 09:42 | disposition home or self-care (01) ==
PROVIDERS: Absent Provider Internal Medicine; PCP Nurse Practitioner Family
DX: K92.2 Gastrointestinal hemorrhage, unspecified (principal)
CPT/HCPCS: 36415; 85025

== ENCOUNTER 2025-04-16 09:00 | Outpatient (CLI) | payer MEDICARE, SELFPAY ==
[2025-04-16 10:15] LABS: Hematocrit 38.8 % (36-47); Hemoglobin 11.90 g/dL (11.27-16.99); Mean Corpuscular HGB Conc 30.7 g/dL (30-55); Mean Corpuscular Hemoglobin 27.5 pg (27-33); Mean Corpuscular Volume 89.8 fl (85-98); Nucleated Red Blood Cells % 0 %; Platelet Count 189 10^3/cmm (157-399); Red Blood Count 4.32 10^6/uL (3.85-5.65); White Blood Count 4.32 10^3/uL (3.29-11.43)
== END 2025-04-16 09:01 | disposition home or self-care (01) ==
LOC: LAB 09:02
PROVIDERS: PCP Nurse Practitioner Family; Visit Provider Registered Nurse
DX: K92.2 Gastrointestinal hemorrhage, unspecified (principal)
CPT/HCPCS: 36415; 85025

== ENCOUNTER → 2025-05-05 14:52 | Outpatient (BNVA) | payer MEDICARE, SELFPAY | PROVIDERS: PCP Nurse Practitioner Family; Visit Provider Internal Medicine | DX: I48.91 Unspecified atrial fibrillation (principal); Z79.02 Long term (current) use of antithrombotics/antiplatelets; Z79.82 Long term (current) use of aspirin; E78.5 Hyperlipidemia, unspecified; I10 Essential (primary) hypertension | CPT/HCPCS: 99214 ==

== ENCOUNTER 2025-05-21 10:35 | Outpatient (CLI) | payer MEDICARE, SELFPAY ==
[2025-05-21 11:54] LABS: Hematocrit 35.8 % (36-47); Hemoglobin 10.60 g/dL (11.27-16.99); Mean Corpuscular HGB Conc 29.6 g/dL (30-55); Mean Corpuscular Hemoglobin 27.8 pg (27-33); Mean Corpuscular Volume 94.0 fl (85-98); Nucleated Red Blood Cells % 0 %; Platelet Count 204 10^3/cmm (157-399); Red Blood Count 3.81 10^6/uL (3.85-5.65); White Blood Count 4.14 10^3/uL (3.29-11.43)
== END 2025-05-21 10:36 | disposition home or self-care (01) ==
PROVIDERS: PCP Nurse Practitioner Family; Visit Provider Internal Medicine
DX: K92.2 Gastrointestinal hemorrhage, unspecified (principal)
CPT/HCPCS: 36415; 85025

== ENCOUNTER 2025-06-30 11:16 | Outpatient (CLI) | payer MEDICARE, SELFPAY ==
[2025-06-30 12:08] LABS: Hematocrit 41.6 % (36-47); Hemoglobin 12.80 g/dL (11.27-16.99); Mean Corpuscular HGB Conc 30.8 g/dL (30-55); Mean Corpuscular Hemoglobin 28.6 pg (27-33); Mean Corpuscular Volume 92.9 fl (85-98); Nucleated Red Blood Cells % 0 %; Platelet Count 179 10^3/cmm (157-399); Red Blood Count 4.48 10^6/uL (3.85-5.65); White Blood Count 4.66 10^3/uL (3.29-11.43)
== END 2025-06-30 11:17 | disposition home or self-care (01) ==
PROVIDERS: PCP Nurse Practitioner Family
DX: K92.2 Gastrointestinal hemorrhage, unspecified (principal)
CPT/HCPCS: 36415; 85025

== ENCOUNTER → 2025-07-27 15:32 | Outpatient (BNVA) | payer MEDICARE, SELFPAY | PROVIDERS: PCP Nurse Practitioner Family; Visit Provider Nurse Practitioner Family | DX: I10 Essential (primary) hypertension (principal) | CPT/HCPCS: 80053; 80061 ==